=== PATIENT | female | born 1980 | race Caucasian/White ===

== ENCOUNTER 2017-05-28 17:05 | Emergency (ER) | payer OTHER ==
[~2017-05-28] VITALS: Ht 167.6 cm; Wt 65.8 kg
[~2017-05-28 17:05] MED LIST: ALPRAZOLAM0.25 MG PO; AMOXICILLIN875 MG PO; BENADRYL25 MG PO; BENTYL20 MG PO; CALCIUM + VITA1 EACH PO; CIPROFLOXACIN500 MG PO; CLONAZEPAM1 MG PO; DEPAKOTE500 MG PO; DICYCLOMINE HCL20 MG PO; DILAUDID2 MG PO; METOCLOPRAMIDE10 MG PO; NORCO 5-325 TA1 EACH PO; OMEPRAZOLE20 MG PO; ONDANSETRON ODT4 MG SL; PERCOCET 5-3251 EACH PO; PROMETHAZINE12.5 M1 PO; REGLAN10 MG PO; SERTRALINE HCL50 MG PO; SUDOGEST60 MG PO; TRAZODONE HCL50 MG PO; XANAX1 MG PO; ZOFRAN4 MG PO; ZOFRAN8 MG PO
[2017-05-28] MEDS ORDERED: PROMETHAZINE HC25 M1 PO (21:01)
[2017-08-16] MEDS ORDERED: MIGRANOW KIT50 MG (15:41)
== END 2017-05-28 21:21 | disposition home or self-care (01) ==
LOC: ED 17:05
DX: O99.89 Other specified diseases and conditions complicating pregnancy, childbirth and the puerperium (principal); R30.0 Dysuria; O20.0 Threatened abortion; O99.341 Other mental disorders complicating pregnancy, first trimester; F41.9 Anxiety disorder, unspecified; F31.9 Bipolar disorder, unspecified; O99.611 Diseases of the digestive system complicating pregnancy, first trimester; K31.84 Gastroparesis; K58.9 Irritable bowel syndrome, unspecified; Z91.040 Latex allergy status; Z88.8 Allergy status to other drugs, medicaments and biological substances; Z79.899 Other long term (current) drug therapy; Z3A.08 8 weeks gestation of pregnancy
CPT/HCPCS: 76815; 76817; 81001; 84702; 99284

== ENCOUNTER 2017-09-26 15:31 | Day surgery (SDC) | payer OTHER ==
[~2017-09-26] VITALS: Ht 172.7 cm; Wt 79.8 kg
[~2017-09-26 15:31] MED LIST changes: +MIGRANOW KIT50 MG; +PROMETHAZINE HC25 M1 PO
[2017-09-26] MEDS ORDERED: NORCO 5-325 TA1 EACH PO (15:52)
[2017-09-26] MEDS ORDERED: FLOMAX0.4 MG PO (15:53)
[2017-09-26] MEDS ORDERED: VISTARIL25 MG PO (15:54)
--- NOTE | 2017-09-26 16:48 | NUR ---
1550: [facility] NURSE IN TO CHECK HEART TONES. HEART TONES FOUND. RATE IS 135 - 160 BPM.
--- NOTE | 2017-09-26 18:28 | NUR ---
09/26/171827 Amber Lopez 182: PT OPENS EYES AND FOLLOWS DIRECTIONS TO OPEN MOUTH FOR ORAL AIRWAY TO BE REMOVED. FBC RN, SUNNY MENA @ MONITORING FETUS CONTINUOUSLY. PT DENIES PAIN AND IS LAYING QUIETLY IN BED. EXTREMITIES RELAXED.
--- NOTE | 2017-10-02 08:49 | OR ---
[facility] [address] [place], [place] [address] Signed DATE OF OPERATION: 09/26/2017 SURGEON: Thomas Rai MD PREOPERATIVE DIAGNOSES: 1. Severe bilateral flank pain, right greater than left. 2. Bilateral hydronephrosis, right greater than left. 3. Intrauterine , 25 weeks. POSTOPERATIVE DIAGNOSES: 1. Severe bilateral flank pain, right greater than left. 2. Bilateral hydronephrosis, right greater than left. 3. Intrauterine , 25 weeks. NAMES OF PROCEDURES: 1. Diagnostic cystoscopy with bilateral retrograde pyelograms. 2. Insertion of bilateral ureteral stents. ANESTHESIA: Spinal anesthetic. COMPLICATIONS: None. SPECIMENS: None. DRAINS: Bilateral 6 x 26 cm contour double-J ureteral stents, inserted into both ureters. INDICATIONS FOR PROCEDURE: Ms. Farr is a very pleasant 36-year-old female who is with her fifth child and is at 25 weeks gestation. Approximately one month ago, she began to notice right-sided flank pain that has progressively worsened overtime. She is now requiring constant oral narcotics in order to function. She was hospitalized for pain this past weekend by Dr. Nath. She has undergone a couple of ultrasounds and most recently her ultrasound revealed bilateral hydronephrosis with most of the severity of the hydronephrosis being on the right side. The ultrasound also revealed a possible 4 mm calcification due either to a stone or to a vascular calcification in the right kidney. After long discussion with the patient today, the patient has decided that she would like to proceed with Electronically Signed By: THOMAS RAI MD 10/02/17 0849 PATIENT NAME: LIANNA FARR OPERATIVE REPORT DATE OF : 76 PHYSICIAN: THOMAS RAI MD REPORT #: [id number] REPORT IS CONFIDENTIAL AND NOT TO BE RELEASED WITHOUT AUTHORIZATION [facility] [address] [place], [place] [address] Signed bilateral ureteral stent implantation in an effort to diminish her flank pain, which is likely due to external compression from the fetus. I also told the patient today that I could rule out the presence of any ureteral stones via retrograde pyelogram. She was notified of the risks and benefits of procedure, which did include labor, and has agreed to proceed. OPERATIVE FINDINGS: On cystoscopy, there was no evidence of any suspicious masses, lesions, or stones within the bladder. The patient's bladder has mildly dropped, and corresponds to grade 2 cystocele. This did affect the bladder orientation slightly during the procedure. I was able to appreciate ureteral coming from both ureters during the procedure. This was confirmed by ultrasound that was performed on September 22. Bilateral retrograde pyelograms were performed. The left side revealed normal pyelogram with evidence of only very mild hydronephrosis. The left ureter was completely patent. Right retrograde pyelogram revealed widening of the ureter down to the level of the iliac crest, which at that point then the ureter becomes more of normal size in diameter. I was unable to pass enough contrast to get up to the right kidney to perform a proper pyelogram. Bilateral 6 x 26 cm contour double-J ureteral stents were inserted into both ureters under direct visualization without difficulty. DESCRIPTION OF PROCEDURE: After informed consent was obtained, the patient was taken back to the operating room. She underwent placement of epidural anesthesia without difficulty. She was then placed in the dorsal lithotomy position and her genitalia prepped and draped in sterile surgical fashion. Using a 30 degree lens on a #22-Uzbek introducer, rigid cystoscope was inserted through the urethra into her bladder under direct visualization. Panendoscopic views of the bladder were obtained. Please see the findings. Attention was turned to the left ureteral orifice. A cone-tipped catheter was advanced to the left UO and a left retrograde pyelogram was performed. Please see above findings. The same procedure was performed on the right side. Please refer to the operative findings. Once both retrograde pyelograms performed, I inserted a Sensor wire into the left ureter and up into the left kidney. I confirmed placement of the wire via fluoroscopy. Over the wire, a 6 x 26 cm double-J ureteral stent was inserted into the left ureter under direct visualization without difficulty. I then cannulated the right ureter again with 0.035 Sensor wire up to the level of the renal pelvis. I confirmed placement of the wire via fluoroscopy. Over the wire, a 6 x 26 cm contour double-J ureteral stent was inserted into the patient's right kidney, and placement was confirmed on fluoroscopy. The patient's bladder was then drained, and the procedure was terminated. The patient Electronically Signed By: THOMAS RAI MD 10/02/17 0849 PATIENT NAME: LIANNA FARR OPERATIVE REPORT DATE OF : 76 PHYSICIAN: THOMAS RAI MD REPORT #: [id number] REPORT IS CONFIDENTIAL AND NOT TO BE RELEASED WITHOUT AUTHORIZATION [address] [address] Signed tolerated the procedure well without any complication. She will now be transferred to the postanesthesia care unit in stable condition. DISPOSITION: Ms. Farr will be discharged to home later this evening when she recovers from her spinal anesthesia. She will be sent home with Percocet 5/325, dispense #10 as needed for pain along with Macrobid 100 mg p.o. b.i.d. for a total of seven days. She will be scheduled to return to clinic to see me in approximately three weeks for urine check. She is scheduled to see Dr. Nath in two days for followup of her severe flank pain, which is now determined to be due to hydronephrosis of . MD YUMIKO Stinson/LAMBERTL /[id number] Electronically Signed By: THOMAS RAI MD 10/02/17 0849 PATIENT NAME: LIANNA FARR OPERATIVE REPORT DATE OF : 76 PHYSICIAN: THOMAS RAI MD REPORT #: [id number] REPORT IS CONFIDENTIAL AND NOT TO BE RELEASED WITHOUT AUTHORIZATION
== END 2017-09-26 21:45 | disposition home or self-care (01) ==
LOC: DS 15:31
PROVIDERS: Urology
PROC: BT14YZZ Fluoroscopy of Kidneys, Ureters and Bladder using Other Contrast (ICD-10-PCS; 2017-09-26)
PROC: 0T788DZ Dilation of Bilateral Ureters with Intraluminal Device, Via Natural or Artificial Opening Endoscopic (ICD-10-PCS; principal; 2017-09-26 17:30)
DX: O99.89 Other specified diseases and conditions complicating pregnancy, childbirth and the puerperium (principal); N13.30 Unspecified hydronephrosis; G43.909 Migraine, unspecified, not intractable, without status migrainosus; Z3A.25 25 weeks gestation of pregnancy; Z96.652 Presence of left artificial knee joint; Z98.890 Other specified postprocedural states
CPT/HCPCS: 00910; 74420; 74430; 80048; C2617; J0696; J2405; J2550; J2704; J2765; J3010; J7120; Q9967

== ENCOUNTER 2017-12-19 23:44 | Inpatient (IN) | payer OTHER ==
[~2017-12-19] VITALS: Ht 172.7 cm; Wt 82.0 kg
--- OUTSIDE RECORDS SUMMARY | ~2017-12-19 | XMS ---
Demographics + + + | Address | [address] | | | [place] [address] | + + + | Preferred Language | Unknown | + + + | Marital Status | Unknown | + + + | Advent Affiliation | Unknown | + + + | Race | Unknown | + + + | Ethnic Group | Unknown | + + + Author + + + | Author | [facility] | + + + | Organization | [facility] | + + + | Address | [address] | | | [place] [address] | + + + | Phone | | + + + Care Team Providers + + + + | Care Mapping Engineer Name | Role | Phone | + + + + Unavailable | Unavailable | + + + + PROBLEMS +---------+ + + +--------+ + + | Type | Condition | ICD9-CM | EQS74-LG | Onset | Condition | SNOMED | | | | Code | Code | Dates | Status | Code | +---------+ + + +--------+ + + | Problem | Encounter | Z34.90 | | | Active | [id number] | | | for | | | | | | | | supervisio | | | | | | | | n of | | | | | | | | normal | | | | | | | | | | | | | | +---------+ + + +--------+ + + | Problem | Pharyngiti | 462 | | | Active | [id number] | | | s NOS | | | | | | +---------+ + + +--------+ + + ALLERGIES No Information SOCIAL HISTORY Never Assessed PLAN OF CARE + +---------+ | Activity | Details | + +---------+ +---+ | | +---+ + + + | Pending Test | Ultrasound: Obstetric Limited | + + + VITAL SIGNS MEDICATIONS Unknown Medications RESULTS No Results PROCEDURES No Known procedures IMMUNIZATIONS No Known Immunizations MEDICAL (GENERAL) HISTORY + + +------+ | Type | Description | Date | + + +------+ | Medical History | Migraines | | + + +------+ | Surgical History | Left knee surgery | | + + +------+ | Surgical History | Abdominal wall evacuation | | | | of hematoma | | + + +------+ | Hospitalization History | E-Coli (bloody diarrhea) | 2000 | + + +------+"
--- OUTSIDE RECORDS SUMMARY | ~2017-12-19 | XMS ---
Demographics + + + | Address | [address] | | | [place] [address] | + + + | Preferred Language | Unknown | + + + | Marital Status | Unknown | + + + | Muslim Affiliation | Unknown | + + + | Race | Unknown | + + + | Ethnic Group | Unknown | + + + Author + + + | Author | [facility] | + + + | Organization | [facility] | + + + | Address | [address] | | | [place] [address] | + + + | Phone | Unavailable | + + + Care Team Providers + + + + | Care Vacuum Form Operator Name | Role | Phone | + + + + Unavailable | Unavailable | + + + + PROBLEMS +---------+ + + +--------+ + + | Type | Condition | ICD9-CM | OVV70-PM | Onset | Condition | SNOMED | | | | Code | Code | Dates | Status | Code | +---------+ + + +--------+ + + | Problem | Encounter | Z34.90 | | | Active | [id number] | | | for | | | | | | | | supervisio | | | | | | | | n of | | | | | | | | normal | | | | | | | | | | | | | | +---------+ + + +--------+ + + | Problem | Pharyngiti | 462 | | | Active | [id number] | | | s NOS | | | | | | +---------+ + + +--------+ + + ALLERGIES No Information SOCIAL HISTORY Never Assessed PLAN OF CARE VITAL SIGNS MEDICATIONS Unknown Medications RESULTS No [...] Hospitalization History | E-Coli (bloody diarrhea) | 2001 | + + +------+"
--- OUTSIDE RECORDS SUMMARY | ~2017-12-19 | XMS ---
Demographics + + + | Address | [address] | | | [place] [address] | + + + | Preferred Language | Unknown | + + + | Marital Status | Unknown | + + + | Adventism Affiliation | Unknown | + + + | Race | Unknown | + + + | Ethnic Group | Unknown | + + + Author + + + | Author | [facility] | + + + | Organization | [facility] | + + + | Address | [address] | | | [place] [address] | + + + | Phone | | + + + Care Team Providers + + + + | Care Rib Knitter Name | Role | Phone | + + + + Unavailable | Unavailable | + + + + PROBLEMS +---------+ + + +--------+ + + | Type | Condition | ICD9-CM | [id number] | Onset | Condition | SNOMED | | | | Code | Code | Dates | Status | Code | +---------+ + + +--------+ + + | Problem | Encounter | Z34.90 | | | Active | [id number] | | | for | | | | | | | | supervisio | | | | | | | | n of | | | | | | | | normal | | | | | | | | | | | | | | +---------+ + + +--------+ + + | Problem | Pharyngiti | 462 | | | Active | [id number] | | | s NOS | | | | | | +---------+ + + +--------+ + + ALLERGIES Unknown Allergies SOCIAL HISTORY No smoking Hx information available PLAN OF CARE VITAL SIGNS MEDICATIONS Unknown Medications RESULTS No Results PROCEDURES No Known procedures IMMUNIZATIONS No Known Immunizations"
--- OUTSIDE RECORDS SUMMARY | ~2017-12-19 | XMS ---
Demographics + + + | Address | [address] | | | [place] [address] | + + + | Preferred Language | Unknown | + + + | Marital Status | Unknown | + + + | Methodist Affiliation | Unknown | + + + | Race | Unknown | + + + | Ethnic Group | Unknown | + + + Author + + + | Author | [facility] | + + + | Organization | [facility] | + + + | Address | [address] | | | [place] [address] | + + + | Phone | | + + + Care Team Providers + + + + | Care Mechanical Cad Designer Name | Role | Phone | + + + + Unavailable | Unavailable | + + + + PROBLEMS +---------+ + + +--------+ + + | Type | Condition | ICD9-CM | [id number] | Onset | Condition | SNOMED | | | | Code | Code | Dates | Status | Code | +---------+ + + +--------+ + + | Problem | Encounter | Z34.90 | | | Active | [id number] | | | for | | | | | | | | supervisio | | | | | | | | n of | | | | | | | | normal | | | | | | | | | | | | | | +---------+ + + +--------+ + + | Problem | Pharyngiti | 462 | | | Active | [id number] | | | s NOS | | [...]
--- OUTSIDE RECORDS SUMMARY | ~2017-12-19 | XMS ---
Demographics + + + | Address | [address] | | | [place] [address] | + + + | Preferred Language | Unknown | + + + | Marital Status | Unknown | + + + | Druze Affiliation | Unknown | + + + | Race | Unknown | + + + | Ethnic Group | Unknown | + + + Author + + + | Author | [facility] | + + + | Organization | [facility] | + + + | Address | [address] | | | [place] [address] | + + + | Phone | | + + + Care Team Providers + + + + | Care Stunt Double Name | Role | Phone | + + + + Unavailable | Unavailable | + + + + PROBLEMS +---------+ + + +--------+ + + | Type | Condition | ICD9-CM | CQP85-LR | Onset | Condition | SNOMED | | | | Code | Code | Dates | Status | Code | +---------+ + + +--------+ + + | Problem | Encounter | Z34.90 | | | Active | [id number] | | | for | | | | | | | | supervisio | | | | | | | | n of | | | | | | | | normal | | | | | | | | | | | | | | +---------+ + + +--------+ + + | Problem | Pharyngiti | 462 | | | Active | [id number] | | | s NOS | | [...]
--- OUTSIDE RECORDS SUMMARY | ~2017-12-19 | XMS ---
Demographics + + + | Address | [address] | | | [place] [address] | + + + | Preferred Language | Unknown | + + + | Marital Status | Unknown | + + + | Pentecostalism Affiliation | Unknown | + + + | Race | Unknown | + + + | Ethnic Group | Unknown | + + + Author + + + | Author | [facility] | + + + | Organization | [facility] | + + + | Address | [address] | | | [place] [address] | + + + | Phone | | + + + Care Team Providers + + + + | Care Library Historian Name | Role | Phone | + + + + Unavailable | Unavailable | + + + + PROBLEMS +---------+ + + +--------+ + + | Type | Condition | ICD9-CM | [id number] | Onset | Condition | SNOMED | | | | Code | Code | Dates | Status | Code | +---------+ + + +--------+ + + | Problem | Encounter | Z34.90 | | | Active | [id number] | | | for | | | | | | | | supervisio | | | | | | | | n of | | | | | | | | normal | | | | | | | | | | | | | | +---------+ + + +--------+ + + | Problem | Pharyngiti | 462 | | | Active | [id number] | | | s NOS | | | | | | +---------+ + + +--------+ + + ALLERGIES Unknown Allergies SOCIAL HISTORY No smoking Hx information available PLAN OF CARE VITAL SIGNS MEDICATIONS + + + + + + + +--------+ | Medicati | Instruct | Dosage | Frequenc | Start | End Date | Duration | Status | | on | ions | | y | Date | | | | + + + + + + + +--------+ | Imitrex | Orally | 1 tablet | | 16 Aug, | | 15 | Active | | 50 mg | bid prn | as | | 2017 | | day(s) | | | | | needed | | | | | | + + + + + + + +--------+ | Flagyl | Orally | 1 tablet | 12h | 08 Sep, | 15 Sep, | 7 days | Active | | 500 mg | bid | | | 2016 | 2016 | | | + + + + + + + +--------+ | | | | | | | | Active | | Vitamin | | | | | | | | + + + + + + + +--------+ RESULTS No Results PROCEDURES No Known procedures IMMUNIZATIONS No Known Immunizations"
--- OUTSIDE RECORDS SUMMARY | ~2017-12-19 | XMS ---
Demographics + + + | Address | [address] | | | [place] [address] | + + + | Preferred Language | Unknown | + + + | Marital Status | Unknown | + + + | Yarsanism Affiliation | Unknown | + + + | Race | Unknown | + + + | Ethnic Group | Unknown | + + + Author + + + | Author | [facility] | + + + | Organization | [facility] | + + + | Address | [address] | | | [place] [address] | + + + | Phone | Unavailable | + + + Care Team Providers + + + + | Care Window Decorator Name | Role | Phone | + + + + Unavailable | Unavailable | + + + + PROBLEMS +---------+ + + +--------+ + + | Type | Condition | ICD9-CM | [id number] | Onset | Condition | SNOMED | | | | Code | Code | Dates | Status | Code | +---------+ + + +--------+ + + | Problem | Encounter | Z34.90 | | | Active | [id number] | | | for | | | | | | | | supervisio | | | | | | | | n of | | | | | | | | normal | | | | | | | | | | | | | | +---------+ + + +--------+ + + | Problem | Pharyngiti | 462 | | | Active | [id number] | | | s NOS | | [...]
[~2017-12-19 23:44] MED LIST changes: +FLOMAX0.4 MG PO; +VISTARIL25 MG PO
--- NOTE | 2017-12-20 11:35 | NUR ---
12/20/17 1135 Mayra Fontaine 1105 PT ARRIVED IN PACU WIDE AWAKE. FAMILY AT BEDSIDE. 1110 FAMILY LEFT ROOM. BABY AT BREAST WITH FBC RN ASSISTING.
--- NOTE | 2018-01-10 18:54 | OR ---
[facility] [address] [place], [place] [address] Signed DATE OF OPERATION: 12/20/2017 SURGEON: Declan Nath DO PREOPERATIVE DIAGNOSES: 1. Intrauterine at 37 weeks gestation. 2. Gestational hypertension. 3. History of shoulder dystocia. POSTOPERATIVE DIAGNOSES: 1. Intrauterine at 37 weeks gestation. 2. Gestational hypertension. 3. History of shoulder dystocia. PROCEDURE PERFORMED: Primary low transverse section. ANESTHESIA: Spinal. ESTIMATED BLOOD LOSS: 500 mL. COMPLICATIONS: None. FINDINGS: Delivery of viable male in cephalic, 20 inches in length, 6 pounds 2 ounces with Apgars of 9 and 9. Normal uterus, tubes, and ovaries. INDICATIONS: Ms. Farr is a pleasant 37-year-old, G7, P4, white female, who presents for scheduled primary low transverse section. Her has been complicated by gestational hypertension without proteinuria or severe range blood pressures, history of shoulder dystocia, anxiety, advanced maternal age, and previous ureteral stents earlier in . The patient requested primary low-transverse section due to history of shoulder dystocia and was recently diagnosed with gestational hypertension. Risks, benefits, and alternatives were discussed in detail with the patient. The patient understands and wished to proceed with the procedure. Electronically Signed By: DECLAN NATH DO 01/10/18 1854 PATIENT NAME: LIANNA FARR OPERATIVE REPORT DATE OF : 76 REPORT #: [id number] PHYSICIAN: DECLAN NATH DO PCP: DECLAN NATH DO REPORT IS CONFIDENTIAL AND NOT TO BE RELEASED WITHOUT AUTHORIZATION [facility] [address] [place], [place] [address] Signed TECHNIQUE: The patient was taken the operating room, where a time-out was performed to confirm correct patient and correct procedure. Spinal anesthesia was adequately established. The patient was then prepped in the supine position with a bump under the right hip. A latex-free Cummins catheter was inserted. ICPs were on and running and Ancef 2 g preoperatively were given per SCIP protocol. Once spinal anesthesia was tested and found to be adequate, a Pfannenstiel skin incision was made and carried down to and through the fascia in the midline. The fascia was nicked in the midline and fascial incision was extended bilaterally using curved Waters scissors. Miya was used to grasp the fascia and underlying rectus muscles were dissected off bluntly and sharply. The rectus muscles were divided in the midline bluntly and peritoneum was grasped with hemostats, elevated and incised sharply. The peritoneal incision was extended bilaterally using blunt and sharp dissection. The surgeon's hand was placed into the abdomen and the fundus was felt and found to be smooth with no intraabdominal adhesions noted. Lavell self retracting device was placed and the lower uterine segment was identified. Hysterotomy was performed using a surgical scalpel and clear fluid was noted. Hysterotomy was extended bilaterally using blunt dissection. The surgeon's hand was then placed into the uterine cavity, the head elevated into the abdomen and delivered with the assistance of fundal pressure. The shoulders delivered easily and the remainder of the delivered spontaneously. The was vigorous and cried and the oral nasopharynx were bulb suctioned. The cord was doubly clamped and cut and the was handed off to the waiting pediatric team for further care. Cord blood was obtained for routine analysis and the placenta was manually extracted. The uterus was cleared of any remaining products of conception and clot, and hysterotomy was then repaired using 0 Vicryl in a running locked stitch. A second vertical imbricating stitch of 0 Vicryl was then applied with good reapproximation. The pelvis was then irrigated and found to be hemostatic. The pericolic gutters were cleared of any remaining clots. The fallopian tubes and ovaries were examined and found to be normal bilaterally. The Lavell self retractor was removed and the lower segment again identified and found to be hemostatic. ACell sheet was applied to the lower uterine segment and the peritoneum was reapproximated using 2-0 Vicryl in a running, nonlocked stitch. The rectus muscles were loosely reapproximated in the midline using 0 Vicryl and 3 interrupted sutures and the rectus muscle was examined found to be hemostatic. ACell powder was applied to the rectus muscle and fascia was reapproximated using 0 Vicryl in a running nonlocked stitch. The subcutaneous layer was then reapproximated using 3-0 Vicryl in a running nonlocked stitch and skin was reapproximated using Quill suture with good hemostasis and cosmesis. The uterus was Crede'd for scant amount of blood loss and the patient was taken to the PACU in good and stable condition with her . Sponge, needle, and instrument count was correct x2 at the end of the procedure. Dr. Singh was present and participated in all portions of the procedure. Electronically Signed By: DECLAN NATH DO 01/10/18 1854 PATIENT NAME: LIANNA FARR OPERATIVE REPORT DATE OF : 76 REPORT #: [id number] PHYSICIAN: DECLAN NATH DO PCP: DECLAN NATH DO REPORT IS CONFIDENTIAL AND NOT TO BE RELEASED WITHOUT AUTHORIZATION [facility] [address] [place] [address] Signed Declan Nath DO JDW/IVAN /[id number] Electronically Signed By: DECLAN NATH DO 01/10/18 1854 PATIENT NAME: LIANNA FARR OPERATIVE REPORT DATE OF : 76 REPORT #: [id number] PHYSICIAN: DECLAN NATH DO PCP: DECLAN NATH DO REPORT IS CONFIDENTIAL AND NOT TO BE RELEASED WITHOUT AUTHORIZATION
== END 2017-12-23 16:40 | disposition home or self-care (01) | DRG 766 ==
LOC: FBC 12-20 07:47
PROVIDERS: ADMIT Obstetrics & Gynecology
PROC: 10D00Z1 Extraction of Products of Conception, Low, Open Approach (ICD-10-PCS; principal; 2017-12-20 11:00)
DX: O66.0 Obstructed labor due to shoulder dystocia (principal); O13.4 Gestational [pregnancy-induced] hypertension without significant proteinuria, complicating childbirth; Z3A.37 37 weeks gestation of pregnancy; Z37.0 Single live birth
CPT/HCPCS: 01961; 36415; 80053; 82570; 84156; 84550; 85025; 85027; C1763; J0690; J1170; J1644; J1885; J2274; J2370; J2405; J2590; J2765; J3010; J7120

== ENCOUNTER 2020-06-25 20:03 | Emergency (ER) | payer SELFPAY ==
[~2020-06-25] VITALS: Ht 172.7 cm; Wt 82.1 kg
--- OUTSIDE RECORDS SUMMARY | ~2020-06-25 | XMS | Encounter Summary ---
Demographics + + + | Address | [address] | | | [place] [address] | + + + | Home Phone | | + + + | Preferred Language | Unknown | + + + | Marital Status | | + + + | Uatsdin Affiliation | Unknown | + + + | Race | Unknown | + + + | Ethnic Group | Unknown | + + + Author + + + | Author | [facility] | | | and Jacobyana | + + + | Organization | [facility] | | | and Jacobyana | + + + | Address | Unknown | + + + | Phone | Unavailable | + + + Support + + + + + | Name | Relationship | Address | Phone | + + + + + | Bear Durbin | ECON | Unknown | | + + + + + | Sebastian Osei | ECON | [address] | | | | | [place] | | | | | [address] | | + + + + + | Jules Osei | ECON | [address] | | | | | [place] | | | | | [address] | | + + + + + Care Team Providers + +------+ + | Care Irrigation Flume Layer Name | Role | Phone | + +------+ + | Johnson Iniguez | PCP | | | MD | | | + +------+ + Reason for Visit + +--------+ + | Reason | Onset | Comments | | | Date | | + +--------+ + | Diarrhea (Adult) | 03/24/ | | | | 2015 | | + +--------+ + Encounter Details +--------+ + + + + | Date | Type | Department | Care Team | Description | +--------+ + + + + | 03/24/ | Telephone | [facility] | [facility], | Diarrhea (Adult) | | 2015 | | GASTROENTEROLOGY | [address] | | | | | [address] | [address] | | | | | [address] [place] | [place] | | | | | [address] | [phone] | | | | | [phone] | | | +--------+ + + + + Social History + +-------+ +--------+------+ | Tobacco Use | Types | Packs/Day | Years | Date | | | | | Used | | + +-------+ +--------+------+ | Never Smoker | | | | | + +-------+ +--------+------+ + +---+---+---+ | Smokeless Tobacco: | | | | | Never Used | | | | + +---+---+---+ + + +---------+ + | Alcohol Use | Drinks/Week | oz/Week | Comments | + + +---------+ + | Yes | 0 Standard drinks | 0.0 | Occasional social | | | or equivalent | | drinker | + + +---------+ + + + + | Sex Assigned at | Date Recorded | | | | + + + | Not on file | | + + + documented as of this encounter Miscellaneous Notes Telephone Encounter - Niecy Araujo CMA - 04/04/2016 11:53 AM PDTFaxed over order to [facility] in [place] Telephone Encounter - Niecy Araujo CMA - 04/04/2016 11:36 AM PDTCalled and spoke to the pa arianne and asked where she would like orders to go and she tells me that she would like to howard ve it go to [facility] in [place] 1 1:39 AM PDTTelephone Encounter - Amber Ruiz Circular Knitter - 03/28/2016 3:09 PM PDTLeft message for patient to return call. elephone Encounter - Amber Ruiz Medical As sistant - 03/24/2016 2:11 PM PDTLeft message that Mildred has sent in a Rx for Questran pow abel to take with Metamucil for diarrhea. Also ordered stool studies. Where would she like th e lab orders sent?Electronically signed by Asa Nails Assistant at 6 2:12 PM PDTTelephone Encounter - Yaritza Moody RN - 03/24/2016 1:51 PM PDTQuestran pa ckets ordered for diarrhea and abdominal cramping, as well as stool studies per Irlanda's reque stKayla Yadira will fax orders to patient preferred lab. elephone Encounter - Amber Ruiz, Circular Knitter - 03/24/2016 8:55 AM PDTSpoke to patient, she is having stomach cramping and diarrhea. She sa id her rectum is sore and irritated from so many BM's. Does she need different medication?El ectronically signed by Amber Ruiz Circular Knitter at 03/24/2016 9:00 AM PDTTeleph one Encounter - Belgica Bennett - 03/24/2016 8:22 AM PDTPatient called wishing to speak to Brkaty or her MA, Yadira, to update her on her on her medication. Patient stated that her curre nt medication is not working, and she needs to try something different. Please call her back at [phone]. documente d in this encounter Plan of Treatment + + +--------+ + + | Name | Type | Priori | Associated Diagnoses | Order Schedule | | | | ty | | | + + +--------+ + + | Lactoferrin, Fecal, | Microbiolog | Routin | Diarrhea | Expected: | | Qual | y | e | Abdominal cramping | 03/24/2016, Expires: | | | | | | 06/22/2016 | + + +--------+ + + | Culture, Stool | Microbiolog | Routin | Diarrhea | Expected: | | | y | e | Abdominal cramping | 03/24/2016, Expires: | | | | | | 03/24/2017 | + + +--------+ + + | Clostridium | Microbiolog | Routin | Diarrhea | Expected: | | difficile A and B | y | e | Abdominal cramping | 03/24/2016, Expires: | | EIA | | | | 03/25/2017 | + + +--------+ + + documented as of this encounter Visit Diagnoses + + | Diagnosis | + + | Diarrhea - Primary | + + | Abdominal cramping Abdominal pain, unspecified site | + + documented in this encounter"
--- OUTSIDE RECORDS SUMMARY | ~2020-06-25 | XMS | Encounter Summary ---
Demographics + + + | Address | [address] | | | [place] [address] | + + + | Home Phone | | + + + | Preferred Language | Unknown | + + + | Marital Status | | + + + | Oriental Orthodox Affiliation | Unknown | + + + | Race | Unknown | + + + | Ethnic Group | Unknown | + + + Author + + + | Author | [facility] | | | and Jacobyana | + + + | Organization | [facility] | | | and Jacobyana | [...] [place] | | | | | [address] | | + + + + + | Jules Osei | ECON | [address] | | | | | [place] | | | | | [address] | | + + + + + Care Team Providers + +------+ + | Care Refinery Operator Visbreaking Name | Role | Phone | + +------+ + | Johnson Iniguez | PCP | | | MD | | | + +------+ + Reason for Visit Auth/Cert +--------+--------+ + + + + | Status | Reason | Specialty | Diagnoses / | Referred By | Referred To | | | | | Procedures | Contact | Contact | +--------+--------+ + + + + | | | | Diagnoses | | | | | | | Nausea | | | | | | | Abdominal | | | | | | | bloating | | | | | | | Rectal | | | | | | | bleeding | | | | | | | Diarrhea | | | | | | | Chronic use | | | | | | | of | | | | | | | benzodiazepi | | | | | | | ne for | | | | | | | therapeutic | | | | | | | purpose | | | | | | | Nausea | | | | | | | [R11.0]Abdom | | | | | | | inal | | | | | | | bloating | | | | | | | [R14.0]Recta | | | | | | | l bleeding | | | | | | | [K62.5]Diarr | | | | | | | hea | | | | | | | [R19.7]Chron | | | | | | | ic use of | | | | | | | benzodiazepi | | | | | | | ne for | | | | | | | therapeutic | | | | | | | purpose | | | | | | | [Z79.899] | | | | | | | | | | | | | | Procedures | | | | | | | GA | | | | | | | ESOPHAGOGAST | | | | | | | RODUODENOSCO | | | | | | | PY TRANSORAL | | | | | | | DIAGNOSTIC | | | | | | | [place] | | | | | | | COLONOSCOPY | | | | | | | FLX DX | | | | | | | W/COLLJ SPEC | | | | | | | WHEN PFRMD | | | | | | | EGD / | | | | | | | COLONOSCOPY | | | +--------+--------+ + + + + Encounter Details +--------+ + + + + | Date | Type | Department | Care Team | Description | +--------+ + + + + | 12/08/ | [facility] | Crispin Tang MD | | | 2015 | Event | [facility] | [address] | | | | | [address] | [place] | | | | | [place] | [address] | | | | | [address] | | | | | | [phone] | | | +--------+ + + + + Anesthesia Record + + + + + | Procedure Name | Responsible | Anesthesia Start | Anesthesia Stop Time | | | Anesthesiologist | Time | | + + + + + | EGD / COLONOSCOPY | Crispin Tang MD | 12/08/15 0857 | 12/08/15 0950 | | (N/A ) | | | | + + + + + +----+---+ + + | Da | T | Event | Comment | | te | i | | | | | m | | | | | e | | | +----+---+ + + | 01 | 0 | An Checkout | Pre-use anesthesia machine/equipment checkout. | | /1 | 8 | | | | 9/ | 4 | | | | 20 | 0 | | | | 16 | | | | +----+---+ + + | | 0 | | | | | 8 | | | | | 4 | | | | | 3 | | | +----+---+ + + | | 0 | An Start | Reassessment prior to anesthesia induction/procedure. | | | 8 | | | | | 5 | | | | | 7 | | | +----+---+ + + | | 0 | An Start | | | | 8 | Data | | | | 5 | | | | | 8 | | | +----+---+ + + | | 0 | An | | | | 9 | Induction | | | | 0 | | | | | 0 | | | +----+---+ + + | | 0 | an stop | | | | 9 | data | | | | 4 | | | | | 4 | | | +----+---+ + + | | 0 | An Stop | Patient handed off to recovery nurse. | | | 5 | | | | | 0 | | | +----+---+ + + +------+ | Meds | +------+ + + + | Name | Total | + + + | propofol | 500 mg | + + + | propofol | 324.25 mg | + + + | lidocaine 2% | 20 mg | + + + | lactated ringers (LR) infusion | 750 mL | + + + + + | Name | + + | O2 Flow Rate (L/Min) | + + + + | No blood administrations on file. | + + +--------+ + + + | Type | Details | Placement | Removal | +--------+ + + + | Periph | 12/08/15; 0851; [id number]-[id number] | 12/08/15 0851 by | 12/08/15 1130 by | | hossein | catheter system; 20 gauge, 11/23 | Quyen Mondragon, | Gladys Hamm | | IV | in length; intradermal injection, | RN | JESSY Duncan | | | distraction; no longer | | | | | indicated, catheter/device | | | | | intact; 12/08/15; 1130 | | | +--------+ + + + documented in this encounter Social History + +-------+ +--------+------+ | Tobacco Use | Types | Packs/Day | Years | Date | | | | | Used | | + +-------+ +--------+------+ | Passive Smoke | | | | | | Exposure - Never | | | | | | Smoker | | | | | + +-------+ +--------+------+ + +---+---+---+ | Smokeless Tobacco: | | | | | Never Used | | | | + +---+---+---+ + + +---------+ + | Alcohol Use | Drinks/Week | oz/Week | Comments | + + +---------+ + | Yes | | | Occasional social | | | | | drinker | + + +---------+ + + + + | Sex Assigned at | Date Recorded | | | | + + + | Not on file | | + + + documented as of this encounter OR Notes Anesthesia Postprocedure Evaluation - Crispin Tang MD - 12/08/2015 9:52 AM PSTFormattin g of this note might be different from the original. ANESTHESIA POSTANESTHESIA EVALUATION Dali Osei 35 y.o. female 1980 [id number] Procedure(s) EGD / COLONOSCOPY (N/A ) Filed Vitals: 12/08/15 0856 12/08/15 0948 BP: 148/85 105/59 Pulse: 95 77 Temp: 36.4 C (97.5 F) 36.2 C (97.2 F) Resp: 18 SpO2: 97% 96% Cooperates? Yes Mental Status Performs simple tasks. Respiratory Satisfactory - Airway patent (self maintained). Cardiovascular Satisfactory Blood pressure and heart rate acceptable Temperature Satisfactory Pain Satisfactory N/V Control Satisfactory Hydration Satisfactory No signs of dehydration Complications None apparent Electronically signed by Crispin Tang MD 12/08/2015 9:[facility] Preprocedur e Evaluation - Crispin Tang MD - 12/08/2015 8:41 AM PST ANESTHESIA PREANESTHESIA EVALUATION Dali Osei 35 y.o. female 1980 [id number] Procedure(s): EGD / COLONOSCOPY (N/A ) Medical history, anesthesia, medications, allergy, NPO status verified histories reviewed. Review of Systems / Med History Pulmonary No acute pulmonary concerns. Psychology Negative except where noted below. Physical Exam Airway MP I, TM >3 FB, Mouth opening >2 FB. Neck: full ROM, extends >30 degrees. Jaw protrusi on normal. Dental Grossly normal except where noted below.; CV Rhythm regular. Rate Normal. (-) murmur. Pulm Clear to auscultation bilaterally. Neuro Grossly normal. Anesthesia Plan ASA 2 Type: TIVA. Induction: Intravenous. Potential problems: None anticipated. Monitors: Standard ASA monitors. Consent statement:Anesthetic plan, alternatives, risks and benefits discussed with patient. Risks discussed included (but were not limited to): sore throat, respiratory events, heart problems, dental injury, . Consenting person understands and agrees to proceed. documented in this enc ounter Miscellaneous Notes Addendum Note - Crispin Tang MD - 12/08/2015 9:53 AM PSTFormatting of this note might b e different from the original. Addendum created 12/08/15 0953 by Crispin Tang MD Modules edited: Notes Section Notes Section: File: [id number] documented in this en counter Plan of Treatment Not on filedocumented as of this encounter Visit Diagnoses Not on filedocumented in this encounter Administered Medications + +--------+ +-------+------+------+ | Medication Order | MAR | Action | Dose | Rate | Site | | | Action | Date | | | | + +--------+ +-------+------+------+ | lidocaine (PF) 2% injection | Given | 12/08/19 | 20 mg | | | | Intravenous, PRN, Starting Tue | | 16 9:00 | | | | | 12/08/15 at 0900, Anesthesia | | AM PST | | | | | Intra-op | | | | | | + +--------+ +-------+------+------+ +---+---+ | | | +---+---+ + +-------+ +-------+---+---+ | propofol (DIPRIVAN) injection | Given | 12/08/19 | 50 mg | | | | PRN, Starting 12/08/15 at | | 16 9:19 | | | | | 0900, Anesthesia Intra-op | | AM PST | | | | + +-------+ +-------+---+---+ +-------+ +-------+---+---+ | Given | 12/08/19 | 50 mg | | | | | 16 9:16 | | | | | | AM PST | | | | +-------+ +-------+---+---+ | Given | 12/08/19 | 50 mg | | | | | 16 9:14 | | | | | | AM PST | | | | +-------+ +-------+---+---+ +---+---+ | | | +---+---+ + + + + +-------+---+ | propofol (DIPRIVAN) injection | Rate/Dos | 12/08/19 | 140 | 84.6 | | | Intravenous, CONTINUOUS PRN, | e Change | 16 9:27 | mcg/kg/m | mL/hr | | | Starting 12/08/15 at 0920, | | AM PST | in | | | | Anesthesia Intra-op | | | | | | + + + + +-------+---+ +---------+ + +--------+---+ | New Bag | 12/08/19 | 200 | 120.8 | | | | 16 9:20 | mcg/kg/m | mL/hr | | | | AM PST | in | | | +---------+ + +--------+---+ +---+---+ | | | +---+---+ documented in this encounter"
--- OUTSIDE RECORDS SUMMARY | ~2020-06-25 | XMS | Encounter Summary ---
Demographics + + + | Address | [address] | | | [place] [address] | + + + | Home Phone | | + + + | Preferred Language | Unknown | + + + | Marital Status | | + + + | Advent Affiliation | Unknown | + + + | Race | Unknown | + + + | Ethnic Group | Unknown | + + + Author + + + | Author | [facility] | | | and Jacobyana | + + + | Organization | [facility] | | | and Jacobyana [...] [place] | | | | | [address] | | + + + + + | Jules Osei | ECON | [address] | | | | | [place] | | | | | [address] | | + + + + + Care Team Providers + +------+ + | Care Outer Diameter Technician Name | Role | Phone | + +------+ + PCP | Unavailable | + +------+ + Encounter Details +--------+ + + + + | Date | Type | Department | Care Team | Description | +--------+ + + + + | 09/10/ | Hospital | [facility] | Kody Vuong, | | | 2007 | Encounter | [facility] | [id number] | | | | | [facility] [address] | [facility] | | | | | [place], | [place] [address] | | | | | [place] [address] | [phone] | | | | | [phone] | | | +--------+ + + + + Social History + +-------+ +--------+------+ | Tobacco Use | Types | Packs/Day | Years | Date | | | | | Used | | + +-------+ +--------+------+ | Never Assessed | | | | | + +-------+ +--------+------+ + + + | Sex Assigned at | Date Recorded | | | | + + + | Not on file | | + + + documented as of this encounter Plan of Treatment Not on filedocumented as of this encounter Visit Diagnoses Not on filedocumented in this encounter"
--- OUTSIDE RECORDS SUMMARY | ~2020-06-25 | XMS | Encounter Summary ---
Demographics + + + | Address | [address] | | | [place] [address] | + + + | Home Phone | | + + + | Preferred Language | Unknown | + + + | Marital Status | | + + + | Baptism Affiliation | Unknown | + + + | Race | Unknown | + + + | Ethnic Group | Unknown | + + + Author + + + | Author | [facility] | | | and Jacobyana | + + + | Organization | [facility] | | | and Jacobyana [...] [place] | | | | | [address] | | + + + + + | Jules Osei | ECON | [address] | | | | | [place] | | | | | [address] | | + + + + + Care Team Providers + +------+ + | Care Diet Therapist Name | Role | Phone | + +------+ + | Johnson Iniguez | PCP | | | MD | | | + +------+ + Reason for Referral Evaluate & Treat (Routine) +--------+ + + + + + | Status | Reason | Specialty | Diagnoses / | Referred By | Referred To | | | | | Procedures | Contact | Contact | +--------+ + + + + + | Closed | Specialty | Gastroenterol | Diagnoses | | [place], | | | Services | ogy | Nausea | Nani, | MD Edd | | | Required | | Abdominal | [place], | [address] | | | | | bloating | [address] | [place], | | | | | Heartburn | [address] | [place] [address] | | | | | Rectal | [address] | Phone: | | | | | bleeding | [place], | [phone] | | | | | Diarrhea | [place] [address] | Fax: | | | | | Chronic use | Phone: | [phone] | | | | | of | [phone] | | | | | | benzodiazepi | Fax: | | | | | | ne for | [phone] | | | | | | therapeutic | | | | | | | purpose | | | | | | | Procedures | | | | | | | OK | | | | | | | ESOPHAGOGAST | | | | | | | RODUODENOSCO | | | | | | | PY TRANSORAL | | | | | | | DIAGNOSTIC | | | | | | | OK EDG | | | | | | | TRANSORAL | | | | | | | BIOPSY | | | | | | | SINGLE/MULTI | | | | | | | PLE OK | | | | | | | COLONOSCOPY | | | | | | | FLX DX | | | | | | | W/COLLJ SPEC | | | | | | | WHEN PFRMD | | | | | | | OK | | | | | | | COLONOSCOPY | | | | | | | W/BIOPSY | | | | | | | SINGLE/MULTI | | | | | | | PLE OK | | | | | | | COLSC FLX | | | | | | | W/RMVL OF | | | | | | | TUMOR POLYP | | | | | | | LESION SNARE | | | | | | | TQ OK | | | | | | | ANESTH,INTES | | | | | | | GENIA,SCOPE,L | | | | | | | OW OK | | | | | | | ANESTH,UGI | | | | | | | ENDOSCOPY | | | +--------+ + + + + + Diagnostic/Screening (Routine) +--------+--------+ + + + + | Status | Reason | Specialty | Diagnoses / | Referred By | Referred To | | | | | Procedures | Contact | Contact | +--------+--------+ + + + + | Closed | | Radiology | Diagnoses | | [facility] | | | | | Nausea | [place], | Medicine | | | | | Abdominal | Mildred, | [address] | | | | | bloating | [address] | [place], | | | | | Heartburn | [address] | [place] | | | | | Procedures | [address] | [address] | | | | | [place] Gastric | [place], | Phone: | | | | | Emptying | [place] [address] | [phone] | | | | | [facility] | Phone: | Fax: | | | | | EMPTYING | [phone] | [phone] | | | | | IMAGING | Fax: | | | | | | STUDY | [phone] | | +--------+--------+ + + + + Reason for Visit + + + | Reason | Comments | + + + | Diarrhea | | + + + Evaluate & Treat (Routine) +--------+--------+ + + + + | Status | Reason | Specialty | Diagnoses / | Referred By | Referred To | | | | | Procedures | Contact | Contact | +--------+--------+ + + + + | Closed | | Gastroenterol | Diagnoses | [place], | [place], | | | | ogy | Diarrhea, | Johnson | [place], | | | | | unspecified | MD Edd | [address] | | | | | Procedures | [address] | | | | | Office | L[place] Jain | [address] | | | | | Visit | [place], | [place], | | | | | | [place] | [place] [address] | | | | | | [address] | Phone: | | | | | | Phone: | [phone] | | | | | | [phone] | Fax: | | | | | | Fax: | [phone] | | | | | | [phone] | | +--------+--------+ + + + + Encounter Details +--------+---------+ + + + | Date | Type | Department | Care Team | Description | +--------+---------+ + + + | 11/26/ | Office | [facility] [place] | [place], | Nausea (Primary Dx); | | 2016 | Visit | GASTROENTEROLOGY | ROB Levy [address] | Abdominal bloating; | | | | [address] | [address] | Heartburn; Rectal | | | | [address] [place], [place] | [place], [place] | bleeding; Diarrhea; | | | | [address] | [address] | Chronic use of | | | | [phone] | | benzodiazepine for | | | | | | therapeutic purpose | +--------+---------+ + + + Social History + +-------+ [...] + + documented as of this encounter Last Filed Vital Signs + + + + + | Vital Sign | Reading | Time Taken | Comments | + + + + + | Blood Pressure | 110/70 | 11/26/2015 9:19 AM | | | | | PST | | + + + + + | Pulse | 85 | 11/26/2015 9:19 AM | | | | | PST | | + + + + + | Temperature | 37.2 C (99 F) | 11/26/2015 9:19 AM | | | | | PST | | + + + + + | Respiratory Rate | 16 | 11/26/2015 9:19 AM | | | | | PST | | + + + + + | Oxygen Saturation | 95% | 11/26/2015 9:19 AM | | | | | PST | | + + + + + | Inhaled Oxygen | - | - | | | Concentration | | | | + + + + + | Weight | 104.8 kg (231 lb) | 11/26/2015 9:19 AM | | | | | PST | | + + + + + | Height | - | - | | + + + + + | Body Mass Index | 35.12 | 12/04/2014 9:52 AM | | | | | PST | | + + + + + documented in this encounter Progress Yaritza Phan RN - 11/26/2015 11:48 AM PSTScheduled for egd/colon with prop on 12/08 at [address] Aiken. Patient has existing Rx for Zofran. Bowel prep ordered, booking sheet an d referral submitted. Mildred Cardoza, [employer] - 11/26/2015 9:41 AM PSTFormatting of this note might be differen t from the original. Dali Osei is a 35 y.o. female here for followup gastroparesis History of present illness: Patient notes that she was treated for gastroparesis 11/2014. Was feeling well and as she st arted diet. Continued to feel well until 03/5015. About 6 months ago, she stopped Reglan due to feeling "shaky". She also reports that she is undergoing testing for Lobito's disease. Notes negative testi ng for Celiac disease already done. Complains of diarrhea. Has up to 8 BM per day. Stools can be loose and/or watery. She has h istory of profound constipation. Stool studies negative for infection. Diarrhea has been an issues for the past 5 months. Has not worsened. Complains of some blood with wiping during bouts of diarrhea. Not sure if blood is due to i rritation or other cause. Nausea, abdominal bloating, and heartburn seem to be worsening. Allergies Allergen Reactions Aspirin Anaphylaxis Shock/ Unconsciousness. Latex Hives and Rash Past Medical History Diagnosis Date Anxiety disorder Gastroparesis Nausea Abdominal cramping Chronic diarrhea Hiatal hernia TMJ (temporomandibular joint disorder) Migraine Fibromyalgia Depression Past Surgical History Procedure Laterality Date Excision hematoma 1980 Left abdomen Growth plate surgery 1990 Left knee pins for growth plate Upper gastrointestinal endoscopy 09/2014 Gastric emptying study 09/26/14 Pronounced gastric atony with markedly delayed gastric emptying with a T1/2 of 250 minute s and only 50% emptying by 240 minutes. - [facility] Jesus Bingham MD Egd and colonoscopy 09/24/14 Concluding Diagnoses: 1. Normal colon and ileaum on gross inspection. 2. Hiatal hernia wi thout esophagitis Nm/hepatobiliary w/ cck 09/24/14 IMPRESSION: No evidence of cystic or common duct obstruction with prompt visualization of the gallbladder and small bowel. Gallbladder ejection fraction of 96% without replication o f the patient's symptoms. - [facility]. 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 Respiratory:Denies shortness of breath, cough or wheezing. Gastrointestinal:Negative except as stated above. Cardiovascular:Denies chest pain, palpitations, or swelling to legs Physical exam: General: well developed, well nourished, in no acute distress. Head: normocephalic and atraumatic Eyes: Sclera clear Mouth: MMM Lungs: Clear to auscultate bilaterally and throughout Heart: regular rate and rhythm Abdomen: Soft, non tender, non distended, bowel tones positive times 4 quadrants, negative Eleazar y's sign, negative rebound tenderness, no guarding, no hepatosplenomegaly palpated. Rectal: Will be done prior to procedure Msk: symmetrical with no deformity, with normal posture and gait, normal strength. Extremities: no clubbing, cyanosis, edema, or deformity noted Neurologic: no focal deficits, cranial nerves II-XII grossly intact Skin: intact without lesions or rashes. Psych: alert and cooperative; normal mood and affect; normal attention span and concentration. No visits with results within 1 Month(s) from this visit. Latest known visit with results is: Abstract on 12/03/2014 Component Date Value Ref Range Status Creatinine, External 09/26/2014 1.00 0.6 - 1.35 Final eGFR, External 09/26/2014 63 60 Final TSH, External 09/25/2014 2.49 0.27 - 4.2 Final WBC, External 09/25/2014 8.8 4.5 - 11 Final HGB, External 09/25/2014 12.5 12 - 16 Final HCT, External 09/25/2014 36.9 35 - 45 Final PLT, External 09/25/2014 226 140 - 440 Final Neutrophils %, External 09/25/2014 66.1 39 - 80 Final Lymphocytes %, External 09/25/2014 25.2 24 - 44 Final Monocytes %, External 09/25/2014 7.5 0 - 12 Final Eosinophils %, External 09/25/2014 0.9 0 - 6 Final RBC, External 09/25/2014 4.44 3.8 - 5.1 Final MCV, External 09/25/2014 83 81 - 99 Final RDW, External 09/25/2014 12.6 10.6 - 15 Final Sodium, External 09/26/2014 137 132 - 143 Final Potassium, External 09/26/2014 3.8 3.6 - 5.1 Final Chloride, External 09/26/2014 105 95 - 112 Final Carbon Dioxide, External 09/26/2014 27 19 - 31 Final Calcium, External 09/26/2014 8.8 8.4 - 10.2 Final Magnesium, External 09/26/2014 1.9 1.7 - 2.5 Final Lipase, External 09/25/2014 19 11 - 82 Final Glucose, External 09/26/2014 97 70 - 100 Final BUN, External 09/26/2014 10 6 - 23 Final Free Thyroxine Index, External 09/25/2014 1.16 0.71 - 1.7 Final Result 09/22/2014 Negative Final No Growth of normal enteric gram-negative bacilli after overnight incubation. Result 2 09/22/2014 Moderate Final Moderate growth normal enteric leobardo Result 3 09/22/2014 Negative Final No Salmonella, Shigella, Escherichia coli O1S7, Campylobacter, or Yersinia isolated. Not s pecifically tested for other enteric pathogens. C DIFFICILE ANTIGEN 09/22/2014 Negative Final C difficile Toxins A+B, EIA 09/22/2014 Negative Final [facility] 09/25/2014 28.0 27.0 - 33.0 pg Final MCHC 09/25/2014 34.0 30.0 - 36.0 % Final BASOPHILS % 09/25/2014 0.3 0.0 - 2.0 % Final ANION GAP 09/26/2014 9 7 - 21 mmol/L Final Bun/Creatinine 09/26/2014 10 6 - 28.6 Ratio Final Assessment 1. Nausea NM Gastric Emptying Ambulatory referral to Gastroenterology ([facility]) 2. Abdominal bloating NM Gastric Emptying Ambulatory referral to Gastroenterology ([facility]) 3. Heartburn NM Gastric Emptying Ambulatory referral to Gastroenterology ([facility]) 4. Rectal bleeding Ambulatory referral to Gastroenterology ([facility]) 5. Diarrhea Ambulatory referral to Gastroenterology ([facility]) 6. 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 Ambulatory referral to Gastroente rology ([facility]) Plan: Patient to have EGD and colonoscopy for further evaluation. The procedural techniques, risk s, indications, and alternatives were discussed. Among the risks, are perforation, bleeding , infection, allergic/adverse reactions to medications, and cardiovascular complications. E ach of these could result in hospitalization, additional procedures (including surgery), or other life threatening complications. Patient verbalized understanding. Risk factors to col o-rectal cancer discussed with patient including smoking, obesity, excessive red meat ingest ion, advancing age and first degree family relative with history of colo-rectal cancer discu ssed with patient. Patient to call with any questions or concerns prior to procedure. Recommend procedure with anesthesia due to chronic benzodiazepine use. Ordered gastric emptying study to check for continued motility cause for discomfort and nam sea. Patient given gastroparesis diet due to likely gastroparesis. Patient given a prescription for Bentyl to help with abdominal pain. Will follow up with results. Patient is to call with any question or concerns. Any fevers, chills, chest pain, SOB or other serious symptoms patient is to call the office or go to ER . Cc: Johnson Iniguez MD This note was dictated using voice recognition software. Please contact me if there are an y questions regarding its content. Electronically signed by ROB Powers at 05/2016 12:17 PM PSTdocumented in this encounter Plan of Treatment + +---------+--------+ + + | Name | Type | Priori | Associated Diagnoses | Order Schedule | | | | ty | | | + +---------+--------+ + + | NM Gastric Emptying | Imaging | Routin | Nausea Abdominal | Expected: | | | | e | bloating Heartburn | 11/26/2015, Expires: | | | | | | 03/25/2016 | + +---------+--------+ + + + + +--------+ + + | Name | Type | Priori | Associated Diagnoses | Order Schedule | | | | ty | | | + + +--------+ + + | Ambulatory referral | Outpatient | Routin | Nausea Abdominal | Expected: 12/08/2015 | | to Gastroenterology | Referral | e | bloating Heartburn | (Approximate), | | ([facility]) | | | Rectal bleeding | Expires: 2016 | | | | | Diarrhea Chronic | | | | | | Use Of | | | | | | Benzodiazepine For | | | | | | Therapeutic Purpose | | + + +--------+ + + documented as of this encounter Procedures + +--------+ + + + | Procedure Name | Priori | Date/Time | Associated Diagnosis | Comments | | | ty | | | | + +--------+ + + + | DIAGNOSTIC REPORT - | | 01/08/2016 | | | | EXTERNAL SCAN | | 12:00 AM | | | | | | PST | | | + +--------+ + + + documented in this encounter Visit Diagnoses + + | Diagnosis | + + | Nausea - Primary Nausea alone | + + | Abdominal bloating Flatulence, eructation, and gas pain | + + | Heartburn | + + | Rectal bleeding Hemorrhage of rectum and anus | + + | Diarrhea | + + | 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 | + + documented in this encounter
--- OUTSIDE RECORDS SUMMARY | ~2020-06-25 | XMS | Encounter Summary ---
Demographics + + + | Address | [address] | | | [place] [address] | + + + | Home Phone | | + + + | Preferred Language | Unknown | + + + | Marital Status | | + + + | Confucianist Affiliation | Unknown | + + + | Race | Unknown | + + + | Ethnic Group | Unknown | + + + Author + + + | Author | [facility] | | | and Jacobyana | + + + | Organization | [facility] | | | and Jacobyana | [...] [place] | | | | | [address] | | + + + + + | Jules Osei | ECON | [address] | | | | | [place] | | | | | [address] | | + + + + + Care Team Providers + +------+ + | Care Supervisor Nurse Name | Role | Phone | + +------+ + | Johnson Iniguez | PCP | | | MD | | | + +------+ + Reason for Visit + + + | Reason | Comments | + + + | Abdominal Pain | | + + + Evaluate & Treat (Routine) +--------+--------+ + + + + | Status | Reason | Specialty | Diagnoses / | Referred By | Referred To | | | | | Procedures | Contact | Contact | +--------+--------+ + + + + | Closed | | Gastroenterol | Diagnoses | [facility], | [facility] | | | | [facility] | | Dali | Gastroenterol | | | | | Gastroenteri | EMELY Atkins | [address] | | | | | tis | [address] | [address] | | | | | Procedures | [address] | [address] | | | | | Office Visit | [place] | [place] | | | | | | [place] | [address] | | | | | | [address] | Phone: | | | | | | Phone: | [phone] | | | | | | [phone] | Fax: | | | | | | Fax: | [phone] | | | | | | [phone] | | +--------+--------+ + + + + Encounter Details +--------+---------+ + + + | Date | Type | Department | Care Team | Description | +--------+---------+ + + + | 12/04/ | Office | [facility] | [facility], | Gastroparesis | | 2015 | Visit | GASTROENTEROLOGY | ROB [address] | (Primary Dx); | | | | [address] | [address] | Eosinophilic | | | | [address] [place], [place] | [place], [place] | esophagitis; Nausea; | | | | [address] | [id number] | Generalized | | | | [phone] | | abdominal pain | +--------+---------+ + + + Social History [...] + + + | Blood Pressure | 140/86 | 12/04/2014 9:52 AM | | | | | PST | | + + + + + | Pulse | 74 | 12/04/2014 9:52 AM | | | | | PST | | + + + + + | Temperature | 37.3 C (99.2 F) | 12/04/2014 9:52 AM | | | | | PST | | + + + + + | Respiratory Rate | 16 | 12/04/2014 9:52 AM | | | | | PST | | + + + + + | Oxygen Saturation | - | - | | + + + + + | Inhaled Oxygen | - | - | | | Concentration | | | | + + + + + | Weight | 92.5 kg (204 lb) | 12/04/2014 9:52 AM | | | | | PST | | + + + + + | Height | 172.7 cm (5' 8") | 12/04/2014 9:52 AM | | | | | PST | | + + + + + | Body Mass Index | 31.02 | 12/04/2014 9:52 AM | | | | | PST | | + + + + + documented in this encounter Patient Instructions Patient Instructions Mildred Cardoza ARNP - 12/04/2014 10:54 AM PSTIncrease omeprazole to 40 mg twice daily to treat eosinophilic esophagitis. Start gastroparesis diet. Patient Education Metoclopramide Hydrochloride Oral disintegrating tablet Metoclopramide Hydrochloride Oral solution Metoclopramide Hydrochloride Oral tablet Metoclopramide Hydrochloride Solution for injection Metoclopramide Hydrochloride Oral tablet What is this medicine? METOCLOPRAMIDE (met oh kloe PRA mide) is used to treat the symptoms of gastroesophageal ref lux disease (GERD) like heartburn. It is also used to treat people with slow emptying of the stomach and intestinal tract. This medicine may be used for other purposes; ask your health care provider or pharmacist i f you have questions. What should I tell my health care provider before I take this medicine? They need to know if you have any of these conditions: breast cancer depression diabetes heart failure high blood pressure kidney disease liver disease Parkinson's disease or a movement disorder pheochromocytoma seizures stomach obstruction, bleeding, or perforation an unusual or allergic reaction to metoclopramide, procainamide, sulfites, other medicin es, foods, dyes, or preservatives or trying to get breast-feeding How should I use this medicine? Take this medicine by mouth with a glass of water. Follow the directions on the prescriptio n label. Take this medicine on an empty stomach, about 30 minutes before eating. Take your d oses at regular intervals. Do not take your medicine more often than directed. Do not stop t aking except on the advice of your doctor or health infant caregiver. A special MedGuide will be given to you by the pharmacist with each prescription and refill . Be sure to read this information carefully each time. Talk to your manager union regarding the use of this medicine in children. Special care may be needed. Overdosage: If you think you have taken too much of this medicine contact a poison control center or emergency room at once. NOTE: This medicine is only for you. Do not share this medicine with others. What if I miss a dose? If you miss a dose, take it as soon as you can. If it is almost time for your next dose, ta ke only that dose. Do not take double or extra doses. What may interact with this medicine? acetaminophen cyclosporine digoxin medicines for blood pressure medicines for diabetes, including insulin medicines for hay fever and other allergies medicines for depression, especially an Monoamine Oxidase Inhibitor (MAOI) medicines for Parkinson's disease, like levodopa medicines for sleep or for pain tetracycline This list may not describe all possible interactions. Give your health care provider a list of all the medicines, herbs, non-prescription drugs, or dietary supplements you use. Also t ell them if you smoke, drink alcohol, or use illegal drugs. Some items may interact with you r medicine. What should I watch for while using this medicine? It may take a few weeks for your stomach condition to start to get better. However, do not take this medicine for longer than 12 weeks. The longer you take this medicine, and the more you take it, the greater your chances are of developing serious side effects. If you are an elderly patient, a female patient, or you have diabetes, you may be at an increased risk fo r side effects from this medicine. Contact your doctor immediately if you start having movem ents you cannot control such as lip smacking, rapid movements of the tongue, involuntary or uncontrollable movements of the eyes, head, arms and legs, or muscle twitches and spasms. Patients and their families should watch out for worsening depression or thoughts of suicid e. Also watch out for any sudden or severe changes in feelings such as feeling anxious, agit ated, panicky, irritable, hostile, aggressive, impulsive, severely restless, overly excited and hyperactive, or not being able to sleep. If this happens, especially at the beginning of treatment or after a change in dose, call your doctor. Do not treat yourself for high fever. Ask your doctor or health infant caregiver for advic e. You may get drowsy or dizzy. Do not drive, use machinery, or do anything that needs mental alertness until you know how this drug affects you. Do not stand or sit up quickly, especial ly if you are an older patient. This reduces the risk of dizzy or fainting spells. Alcohol c an make you more drowsy and dizzy. Avoid alcoholic drinks. What side effects may I notice from receiving this medicine? Side effects that you should report to your doctor or health infant caregiver as soon as p ossible: allergic reactions like skin rash, itching or hives, swelling of the face, lips, or tong ue abnormal production of milk in females breast enlargement in both males and females change in the way you walk difficulty moving, speaking or swallowing drooling, lip smacking, or rapid movements of the tongue excessive sweating fever involuntary or uncontrollable movements of the eyes, head, arms and legs irregular heartbeat or palpitations muscle twitches and spasms unusually weak or tired Side effects that usually do not require medical attention (report to your doctor or health infant caregiver if they continue or are bothersome): change in sex drive or performance depressed mood diarrhea difficulty sleeping headache menstrual changes restless or nervous This list may not describe all possible side effects. Call your doctor for medical advice a bout side effects. You may report side effects to FDA at 4-600-XES-4355. Where should I keep my medicine? Keep out of the reach of children. Store at room temperature between 20 and 25 degrees C (68 and 77 degrees F). Protect from l ight. Keep container tightly closed. Throw away any unused medicine after the expiration brandon e. NOTE:This sheet is a summary. It may not cover all possible information. If you have questi ons about this medicine, talk to your doctor, pharmacist, or health care provider. Copyright 2014 Gold Standard documented in this encounter Progress Notes Mildred Cardoza ARNP - 12/04/2014 10:13 AM PSTFormatting of this note might be differe nt from the original. Dali Osei is a 34 y.o. female referred by Johnson Iniguez for evaluati on and treatment of nausea, abdominal pain, alterations and bowels with abnormal gastric emp tying study and evidence of eosinophilic esophagitis. History of present illness: Patient notes that about 3-4 months ago she was having abdominal pain, nausea, vomiting and diarrhea. She would have symptoms for a few days, then would be better for a few more days. This went on for about 3 weeks. On her abdominal pain worsened to the point she went to he ER. She was admitted t o the hospital for over 10 days. She continued to have abdominal pain, nausea and vomiting. While on pain medication, she developed constipation in the hospital. She was initially disc harged after 3 days. Was home for an hour and she was readmitted for another 7 days. Since she was discharged from the hospital on 09/30/2014. She has continued to have nausea and abdominal pain. Abdominal pain on the right side. Pain is constant cramp or ache. Heat t o the area can help along with not eating. No certain foods worsen pain. She was taking Perc ocet every 6 hours for pain. She is now taking occasionally. Drinking Ensure for nutrition. Pain usually wakes her up from sleep. She is drinking Ensure 4 times daily and is trying to eat once every 2-3 days. After eating the intensity of cramping and ache worsens. Nausea with antiemetics have helped some. With increase in constipation, nausea seems to be worsening. She is no longer vomiting. She is now constipated. Prior to this episode, she has had alterations between constipation and diarrhea. Seems lik e a 2 weeks cycle that had been going on for about 2 years. Allergies Allergen Reactions Aspirin Anaphylaxis Shock/ Unconsciousness. Latex Hives and Rash Past Medical History Diagnosis Date Anxiety disorder Gastroparesis Nausea Abdominal cramping Chronic diarrhea Hiatal hernia TMJ (temporomandibular joint disorder) Migraine Fibromyalgia Depression Past Surgical History Procedure Date Excision hematoma 1980 Left abdomen Growth [...] Comment: Occasional social drinker Drug Use: No Sexually Active: Not on file Other Topics Concern Not on file Social History Narrative Caffeine: Drinks herbal tea daily Review of systems: Constitutional:Denies any fevers, chills, or unintentional weight loss. Eyes:Denies using glaucoma eye drops. Denies dry, burning, painful eyes Respiratory:Denies shortness of breath, cough or wheezing. Gastrointestinal:Complains of constipation, diarrhea, nausea and vomiting, heartburn, abdom inal pain, and dysphagia. Skin: Denies rashes. Neurological:Complains of memory difficulties and frequent bothersome headaches ENT:Complains of hayfever. Denies hearing loss, hearing aids, hearing ringing or buzzing in ears, constantly runny nose, nasal obstruction, dentures, or hoarseness. Cardiovascular:Denies chest pain, palpitations, or swelling to legs :Complains of frequent nocturnal urination. Denies painful urination, urine incontinence, bloody urine, or impotence Musculoskeletal:Complains of swollen joints, painful back, or painful joints. Psychiatric:Complains of depression and anxiety Endocrine:Denies enlarged thyroid Heme/lymph:Complains of anemia. Denies enlarged lymph glands. Physical exam: General: well developed, well nourished, in no acute distress. Head: normocephalic and atraumatic Eyes: Sclera clear Mouth: MMM Lungs: Clear to auscultate bilaterally and throughout Heart: regular rate and rhythm Abdomen: Soft, diffusely tender to palpation, non distended, bowel tones positive times 4 quadra nts, negative To's sign, negative rebound tenderness, no guarding, no hepatosplenomegaly palpated. Msk: symmetrical with no deformity, with normal posture and gait, normal strength. Extremities: no clubbing, cyanosis, edema, or deformity noted Neurologic: no focal deficits, cranial nerves II-XII grossly intact Skin: intact without lesions or rashes. Psych: alert and cooperative; normal mood and affect; normal attention span and concentration. Gastric Emptying Study 09/26/2014: Impression: Pronounced gastric atony with markedly delayed gastric emptying with a T1/2 of 250 minutes and only 50% emptying by [address] abdomen and pelvis with IV contrast 09/25/2014: 1. Bowel shows no obstruction , ileus or free air. No colitis or diverticulitis and normal appendix without appendicitis. There is fluid within a nondistended colon which is nonspecif ic and could represent a mild enteritis. 2. No inflammation, free fluid or abscess in the abdomen or pelvis. 3. Distended but otherwise normal gallbladder. No pancreatitis and no biliary duct dilation . 4. Normal kidneys. No hydronephrosis and no pyelonephritis. 5. Normal uterus and adnexa. EGD and Colonoscopy by Dr Beasley 09/24/2014: 1. Normal appearing colon and ileum. 2. Hiatal hernia without esophagitis. No sign of stomach or duodenal ulceration or inflamma tion. Pathology 09/24/2014: A. Cecum biopsy: - Unremarkable colonic mucosa B. Terminal ileum biopsy: - Unremarkable small bowel mucosa C. Hepatic flexure biopsy: - Unremarkable colonic mucosa. D. Transverse colon biopsy: - Minute subepithelial hemorrhage. E. Left colon biopsy: - Minute foci of subepithelial hemorrhage. F. Rectum biopsy: - Minute foci of subepithelial hemorrhage. G. Duodenum biopsy: - Unremarkable duodenal mucosa. H. Antrum biopsy: - Unremarkable gastric antral-type mucosa. I. Distal esophagus biopsy: - Squamous mucosa with increased intraepithelial eosinophils. Nuclear Medicine hepatobiliary scan 09/24/2014: No evidence of cystic or common duct obstruction with prompt visualization of the gallbladd er and small bowel. Gall bladder ejection fraction of 96% without replication of the patient 's symptoms. Abstract on 12/03/2014 Component Date Value Range Status Creatinine, External 09/26/2014 1.00 0.6 [...] difficile Toxins A+B, EIA 09/22/2014 Negative Final [facility] 09/25/2014 28.0 27.0 - 33.0 pg [facility] 09/25/2014 34.0 30.0 - 36.0 % Final BASOPHILS % 09/25/2014 0.3 0.0 - 2.0 % Final ANION GAP 09/26/2014 9 7 - 21 mmol/L Final Bun/Creatinine 09/26/2014 10 6 - 28.6 Ratio Final Assessment: 1. Gastroparesis 2. Eosinophilic esophagitis 3. Nausea 4. Generalized abdominal pain Plan: Discussed results of all tests in records provided. Advised patient that gastric emptying study shows profound gastroparesis, which is a delay in gastric emptying. Explained diagnosis and patient given 3 step diet for treatment. Advise d to follow step 1 for 2-3 days with multivitamin. Advance to step 2 Continue on step 2 for up to 1 month. When symptoms start to improve gradually move into step 3. She has previously been given Reglan to help with her gastroparesis. Discussed potential side effects includin g tardive dyskinesia. Patient verbalized understanding and will discontinue medication if in voluntary muscle movement begin, he will stop this medication immediately and call this offi ce. Discussed Eosinophilic Esophagitis with patient. Advised that this is likely an allergy to food she is eating. She will be on high dose omeprazole- 40 mg bid- for 12 weeks for treatme nt. Discussed the most common allergens: wheat, soy, cow's milk, tree nuts, fish and shellfi sh. She should avoid these for now. She has the option of allergy testing if she chooses. She is to follow up after 2 weeks to determine if any improvement in symptoms. Spent approximately 45 minutes with patient with over half in patient education. Patient is to call with any question or concerns. Any fevers, chills, chest pain, SOB or o ther serious symptoms patient is to call the office or go to ER Cc: Johnson Iniguez This note was dictated using voice recognition software. Please contact me if there are an y questions regarding its content. documented in t his encounter Miscellaneous Notes Miscellaneous - CHELSEY ROBISON - 12/04/2014 12:00 AM PST documented in this encounter Plan of Treatment Not on filedocumented as of this encounter Visit Diagnoses + + | Diagnosis | + + | Gastroparesis - Primary | + + | Eosinophilic esophagitis | + + | Nausea Nausea alone | + + | Generalized abdominal pain Abdominal pain, generalized | + + documented in this encounter
--- OUTSIDE RECORDS SUMMARY | ~2020-06-25 | XMS | Clinical Summary ---
Demographics + + + | Address | [address] | | | [place] [address] | + + + | Home Phone | | + + + | Preferred Language | Unknown | + + + | Marital Status | | + + + | Bahai Affiliation | Unknown | + + + | Race | Unknown | + + + | Ethnic Group | Unknown | + + + Author + + + | Author | [facility] | | | and Jacobyana | + + + | Organization | [facility] | | | and Jacobyana [...] [place] | | | | | [address] | | + + + + + | Jules Osei | ECON | [address] | | | | | [place] | | | | | [address] | | + + + + + Care Team Providers + +------+ + | Care Assistant Casino Shift Manager Name | Role | Phone | + +------+ + | Johnson Iniguez | PCP | | | MD | | | + +------+ + Allergies + + + + + + | Active Allergy | Reactions | Severity | Noted | Comments | | | | | Date | | + + + + + + | Aspirin | Anaphylaxis | High | 12/03/19 | Shock/ | | | | | 15 | Unconsciousness. | + + + + + + | Latex | Hives, Rash | Low | 12/03/19 | | | | | | 15 | | + + + + + + Medications + + + +---------+------+------+-------+ | Medication | Sig | Dispensed | Refills | Star | End | Statu | | | | | | t | Date | s | | | | | | Date | | | + + + +---------+------+------+-------+ | ondansetron | Take 8 mg by mouth | | 0 | | | Activ | | (ZOFRAN ODT) 8 mg | every 8 hours as | | | | | e | | disintegrating | needed. | | | | | | | tablet | | | | | | | + + + +---------+------+------+-------+ | ALPRAZolam (XANAX) | Take 0.5 mg by mouth | | 0 | | | Activ | | 0.5 mg tablet | 3 times daily as | | | | | e | | | needed. | | | | | | + + + +---------+------+------+-------+ | divalproex | Take 1,200 mg by | | 0 | | | Activ | | (DEPAKOTE) 500 mg EC | mouth Daily. | | | | | e | | tablet | | | | | | | + + + +---------+------+------+-------+ | traZODone | Take 50 mg by mouth | | 0 | | | Activ | | (DESYREL) 50 mg | nightly. | | | | | e | | tablet | | | | | | | + + + +---------+------+------+-------+ | sertraline | Take 50 mg by mouth | | 0 | | | Activ | | (ZOLOFT) 50 mg | Daily. | | | | | e | | tablet | | | | | | | + + + +---------+------+------+-------+ | fluticasone | 1 spray by Nasal | | 0 | | | Activ | | (FLONASE) 50 | route Daily. | | | | | e | | mcg/nasal spray | | | | | | | + + + +---------+------+------+-------+ Active Problems + + + | Problem | Noted Date | + + + | Nausea | 11/26/2015 | + + + | Abdominal bloating | 11/26/2015 | + + + | Rectal bleeding | 11/26/2015 | + + + | Diarrhea | 11/26/2015 | + + + | 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 | 11/26/2015 | + + + Family History + + +------+ + | Medical History | Relation | Name | Comments | + + +------+ + | No known problems | Father | | | + + +------+ + | Thyroid disease | Maternal | | Hypothyroid | | | Aunt | | | + + +------+ + | Heart disease | Maternal | | | | | Uncle | | | + + +------+ + | Lung cancer | Maternal | | | | | Uncle | | | + + +------+ + | Thyroid disease | Mother | | Hypothyroid | + + +------+ + | Thyroid disease | Paternal | | Hyperthyroid | | | Aunt | | | + + +------+ + | Breast cancer | Paternal | | | | | Aunt | | | + + +------+ + | Aortic insufficiency | Sister | | Aortic valve disease | + + +------+ + | Thyroid disease | Sister | | Hypothyroid | + + +------+ + | Crohn's disease | Sister | | | + + +------+ + + +------+--------+ + | Relation | Name | Status | Comments | + +------+--------+ + | Father | | Alive | | + +------+--------+ + | Maternal Aunt | | | | + +------+--------+ + | Maternal Uncle | | | | + +------+--------+ + | Maternal Uncle | | | | + +------+--------+ + | Mother | | Alive | | + +------+--------+ + | Paternal Aunt | | | | + +------+--------+ + | Paternal Aunt | | | | + +------+--------+ + | Sister | | | | + +------+--------+ + | Sister | | | | + +------+--------+ + | Sister | | | | + +------+--------+ + Social History + +-------+ +--------+------+ | [...] on file | | + + + Last Filed Vital Signs + + + + + | Vital Sign | Reading | Time Taken | Comments | + + + + + | Blood Pressure | 116/80 | 03/07/2016 10:37 AM | | | | | PDT | | + + + + + | Pulse | 86 | 03/07/2016 10:37 AM | | | | | PDT | | + + + + + | Temperature | 36.7 C (98.1 F) | 03/07/2016 10:37 AM | | | | | PDT | | + + + + + | Respiratory Rate | 16 | 03/07/2016 10:37 AM | | | | | PDT | | + + + + + | Oxygen Saturation | 97% | 03/07/2016 10:37 AM | | | | | PDT | | + + + + + | Inhaled Oxygen | - | - | | | Concentration | | | | + + + + + | Weight | 102.1 kg (225 lb) | 03/07/2016 10:37 AM | | | | | PDT | | + + + + + | Height | 172.7 cm (5' 8") | 12/08/2015 8:56 AM | | | | | PST | | + + + + + | Body Mass Index | 34.21 | 12/08/2015 8:56 AM | | | | | PST | | + + + + + Plan of Treatment + + +-------+ + | Health Maintenance | Due Date | Last | Comments | | | | Done | | + + +-------+ + | Vaccine: | | | | | Dtap/Tdap/Td (1 - | 8 | | | | Tdap) | | | | + + +-------+ + | Cervical Cancer | | | | | Screening (Pap) | 9 | | | + + +-------+ + | Vaccine: Influenza | | | | | (#1) | 0 | | | + + +-------+ + Results Not on filefrom Last 3 Months Insurance + +--------+ +--------+ +---------+--------+ | Payer | Benefi | Subscriber | Effect | Phone | Address | Type | | | t Plan | ID | magda | | | | | | / | | Dates | | | | | | Group | | | | | | + +--------+ +--------+ +---------+--------+ | [employer] | [employer] | [id number] | | [phone] | | Medica | | MEDICAID HMO | HEALTH | | [phone] | 1 | | id | | | MDCD | | esent | | | | | | HMO [place] | | | | | | + +--------+ +--------+ +---------+--------+ + +--------+ +--------+ + + | Guarantor Name | Accoun | Relation to | Date | Phone | Billing Address | | | t Type | Patient | of | | | | | | | | | | + +--------+ +--------+ + + | Dali Osei | Person | Self [birth year] | | | Meg | al/[place]han | | 1981 | [phone] | [place] [address] | | | matilde | | | 3 (Home) | | + +--------+ +--------+ + + Advance Directives + + + + + | Type | Date Recorded | Patient | Explanation | | | | 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
--- OUTSIDE RECORDS SUMMARY | ~2020-06-25 | XMS | Encounter Summary ---
Demographics + + + | Address | [address] | | | [place] [address] | + + + | Home Phone | | + + + | Preferred Language | Unknown | + + + | Marital Status | | + + + | Sikhism Affiliation | Unknown | + + + | Race | Unknown | + + + | Ethnic Group | Unknown | + + + Author + + + | Author | [facility] | | | and Jacobyana | + + + | Organization | [facility] | | | and Jacobyana [...] [place] | | | | | [address] | | + + + + + | Jules Osei | ECON | [address] | | | | | [place] | | | | | [address] | | + + + + + Care Team Providers + +------+ + | Care Ring Barker Operator Name | Role | Phone | + +------+ + | Johnson Iniguez | PCP | | | MD | | | + +------+ + Encounter Details +--------+ + + + + | Date | Type | Department | Care Team | Description | +--------+ + + + + | 12/25/ | Documentati | [facility] | Edd Aiken MD | | | 2016 | on | GASTROENTEROLOGY | [address] [facility] | | | | | [address] [facility] | [place], [place] | | | | | [address] [place], [place] | [address] | | | | | [address] | [phone] | | | | | [phone] | | | +--------+ + + + [...] + + documented as of this encounter Progress Notes Yaritza Moody RN - 12/25/2015 2:39 PM PSTResults letter routed to patient via [employer] nd to PCP. Hard copies mailed with hemorrhoid banding brochure. Will create referral for garcia gracia if patient interested in scheduling. Electronically signed by Yaritza Moody RN at 03/2016 2:45 PM PSTdocumented in this encounter Plan of Treatment Not on filedocumented as of this encounter Visit Diagnoses Not on filedocumented in this encounter"
--- OUTSIDE RECORDS SUMMARY | ~2020-06-25 | XMS | Encounter Summary ---
Demographics + + + | Address | [address] | | | [place] [address] | + + + | Home Phone | | + + + | Preferred Language | Unknown | + + + | Marital Status | | + + + | Shinto Affiliation | Unknown | + + + | Race | Unknown | + + + | Ethnic Group | Unknown | + + + Author + + + | Author | [facility] | | | and Jacobyana | + + + | Organization | [facility] | | | and [...] [place] | | | | | [address] | | + + + + + | Jules Osei | ECON | [address] | | | | | [place] | | | | | [address] | | + + + + + Care Team Providers + +------+ + | Care Network Pricing Consultant Name | Role | Phone | + +------+ + PCP | Unavailable | + +------+ + Encounter Details +--------+ + + + + | Date | Type | Department | Care Team | Description | +--------+ + + + + | 09/17/ | [facility] | [facility] | Dontae Marquis | | | 2003 | Encounter | MED CTR GENERIC OP | MD Guy [address] | | | | | CONV DEPT [address] [place], [place] | | | | | [place], | [address] | | | | | [place] [address] | [phone] | | | | | [phone] | | | +--------+ + + + [...]
--- OUTSIDE RECORDS SUMMARY | ~2020-06-25 | XMS | Encounter Summary ---
Demographics + + + | Address | [address] | | | [place] [address] | + + + | Home Phone | | + + + | Preferred Language | Unknown | + + + | Marital Status | | + + + | Orthodoxy Affiliation | Unknown | + + + | Race | Unknown | + + + | Ethnic Group | Unknown | + + + Author + + + | Author | [facility] | | | and Jacobyana | + + + | Organization | [facility] | | | and [...] [place] | | | | | [address] | | + + + + + | Jules Osei | ECON | [address] | | | | | [place] | | | | | [address] | | + + + + + Care Team Providers + +------+ + | Care Educational Interpreter Name | Role | Phone | + +------+ + | Johnson Iniguez | PCP | | | MD | | | + +------+ + Reason for Visit + + + | Reason | Comments | + + + | Follow-up | | + + + Encounter Details +--------+---------+ + + + | Date | Type | Department | Care Team | Description | +--------+---------+ + + + | 03/07/ | Office | [facility] | [facility], | Irritable bowel | | 2016 | Visit | GASTROENTEROLOGY | ROB [address] | syndrome with | | | | [address] | [address] | diarrhea (Primary | | | | [address] [place], [place] | [place], [place] | Dx); Nausea | | | | [address] | [address] | | | | | [phone] | | | +--------+---------+ + + + Social History [...] Instructions Patient Instructions Mildred Cardoza ARNP - 03/07/2016 11:10 AM PDTIrritable Bowel Syn drome: Self Care and Non-Pharmacologic Treatments ? Regular Cardiovascular Exercise (30 minutes, 3-5 times per week) ? FODMAP dietary changes ? Stress Relief: yoga, massage, acupuncture, meditation, expressive writing, hypnosis ? Probiotics ? Eating meals at regular intervals (not skipping meals or excessive snacking between meals ) ? Peppermint oil enteric-coated capsules (non-enteric coated capsules can cause heartburn) ? Other herbal medicines that have historically been used for IBS include chamomile, rosema ry, valerian, janes, and lemon balm. ? Counseling ? High fiber diet: bananas, oranges, strawberries, blueberries, tomatoes, carrots, corn, br own rice, wild rice, gluten free breads, pastas and oatmeal. Expressive writing: Am J Gastroenterol 2010; 105:2440 2448; doi:10.1038/ajg.2010.246;publ ished online 04 May 2010 Accupuncture: Am J Gastroenterol 2010;105:699; doi:10.1038/ajg.2009.647: Exercise: Am J Gastroenterol advance online publication 23 November 2010; doi: 10.1038/ajg.20 10.480 Peppermint: [place] Journal of Gastroenterology (1998) 93, 2304 2305; doi:10.1111/j.1572 -0241.1998.58197.x Probiotics: Am J Gastroenterol 2009; 104:1033 1049; doi:10.1038/ajg.2009.25; published on line 27 January 2009 FODMAP Elimination Diet: Malabsorption of fructose and short-chain carbohydrates ? Useful for Irritable Bowel Syndrome, Functional Diarrhea, Functional Dyspepsia, Functiona l Bloating, Lactose and Gluten Sensitivities. ? Review checklist for common foods in your diet. Limit/Eliminate these foods in your diet. ? Try for 8 weeks. Then attempt to reintroduce foods slowly (one new food every 2 weeks). W atc for signs of recurrent symptoms when reintroducing foods. FODMAP checklist- common problematic foods ? Fruit: apple, pear, guava, honeydew, saumya, pear, papaya, quince, star fruit, water melon. ? Stone fruits: apricots, peaches, cherries, plums, nectarines. ? Fruits with high sugar content: grapes, persimmon, lychee. ? Dried fruit. ? Fruit juice, canned packing juice. ? Dried Fruit Bars. ? Fruit pastas and sauces: tomato paste, chutney, relish, plum sauce, sweet and sour sauce, barbeque sauce. ? Fruit juice concentrate. ? Fructose as an added sweetener. ? High fructose corn syrup or corn syrup solids including: fruit drinks, carbonated drinks, pancake syrup, catsup, jams, jellies, pickle, relish, and/or liquid cough remedies, and liq uid pain relievers. ? Honey. ? Coconut milk. ? Fortified ida: kathe, port, etc. ? Vegetables: onion hansel, asparagus, artichokes, cabbage, Brussel sprouts, beans. ? Wheat or white bread. ? Wheat pasta, noodles. ? Wheat based cereals. ? Wheat based cakes. ? Chickory-based coffee- substitute beverages. ? Artificial sweeteners: sorbitol, mannitol, isomall, xylitol. ? If Lactose Malabsorption: milk, ice cream, yogurt. documented in this encounter Progress Notes Mildred Cardoza ARNP - 03/07/2016 11:01 AM PDTFormatting of this note might be differe nt from the original. Dali Osei is a 35 y.o. female here for followup EGD, colonoscopy, and gastric emptying study. History of present illness: Patient complains of continued nausea. Nausea can come at any time. She had been diagnosed with gastroparesis in 2013. At that time her gastric emptying study showed a markedly gurwinder yed gastric emptying. She is also having worsening nausea after eating. She is now feeling that nausea comes with or without eating. Complains of heartburn, worse at night. Also comes after eating. Diarrhea has persisted. Diarrhea is worse with eating. Having 8-12 BM per day. Notes some occasional nocturnal bowel movements. She has not lost weight due to the number of bowel mo vements. She reports that she was found to have elevated cortisol levels. This is being followed by Dr. Iniguez. Allergies Allergen Reactions Aspirin Anaphylaxis Shock/ Unconsciousness. [...] symptoms. - [facility] MD Colonoscopy Egd and colonoscopy N/A 12/08/2015 Procedure: EGD / COLONOSCOPY; Surgeon: Edd Aiken MD; Location: 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 Respiratory:Denies shortness of breath, cough or wheezing. Gastrointestinal:Negative except as stated above. Cardiovascular:Denies chest pain, palpitations, or swelling to legs Physical exam: General: Alert and oriented, NAD Eyes: Sclera clear Mouth: Mucous membranes moist Extremities: No clubbing or edema Skin: Warm, dry, intact. No rashes noted Neuro: Cranial nerves 2-12 grossly intact. Psych: Appropriate mood and affect. No visits with results within 1 Month(s) [...] difficile Toxins A+B, EIA 09/22/2014 Negative Final MCH 09/25/2014 28.0 27.0 - 33.0 pg Final MCHC 09/25/2014 34.0 30.0 - 36.0 % Final BASOPHILS % 09/25/2014 0.3 0.0 - 2.0 % Final ANION GAP 09/26/2014 9 7 - 21 mmol/L Final Bun/Creatinine 09/26/2014 10 6 - 28.6 Ratio Final Gastric emptying study : Findings: The stomach begins to empty immediately and continue steadily emptying through the 4 hour e xamination. Half emptying time is 90 minutes, which is mildly delayed. At 3 hours, the stomach is 83% emptied. At 4 hours the stomach is completely empty. EGD 12/08/2015: Impression: - Normal esophagus. Biopsied. - Erythematous mucosa in the stomach. Biopsied. - Normal duodenal bulb, 2nd part of the duodenum and 3rd part of the duodenum. Biopsied. Colonoscopy 12/08/2015: Impression: - The entire examined colon is normal. Biopsied. - Non-bleeding internal hemorrhoids. - The examined portion of the ileum was normal. Pathology 12/08/2015: FINAL PATHOLOGIC DIAGNOSIS: A. Duodenum, biopsies: - Fragments of benign duodenal mucosa, negative for celiac disease. B. Stomach, biopsies: - Fragments of benign gastric mucosa with mild chronic inflammation. - No Helicobacter pylori organisms identified. - No intestinal metaplasia identified. - No dysplasia identified. C. Esophagus, distal, biopsies: - Benign esophageal squamous mucosa. - Negative for reflux esophagitis. - Negative for eosinophilic esophagitis. - Negative for intestinal metaplasia (Parekh's esophagus). - Negative for dysplasia. D. Esophagus, mid, biopsies: - Benign esophageal squamous mucosa. - Negative for reflux esophagitis. - Negative for eosinophilic esophagitis. - Negative for intestinal metaplasia (Parekh's esophagus). - Negative for dysplasia. E. Colon, right, biopsies: - Fragments of benign colonic mucosa with lymphoid aggregates. - Negative for acute or chronic colitis. - Negative for microscopic colitis. - Negative for dysplasia. F. Colon, left, biopsies: - Fragments of benign colonic mucosa with lymphoid aggregates. - Negative for acute or chronic colitis. - Negative for microscopic colitis. - Negative for dysplasia. Assessment 1. Irritable bowel syndrome with diarrhea 2. Nausea Suspect this is also secondary to irritable bowel syndrome. Plan: Patient given prescription for Viberzi to help with irritable bowel syndrome with a diarrhe a predominant component. Colonoscopy showed no evidence of any pathologic organic cause for her diarrhea. Due to nausea having different timing as her previous diagnosis of gastroparesis, suspect n ausea is also secondary to a functional cause. Patient does note that she is going through divorce. Had been seeing a therapist. She feels as though her therapist was making her anx iety worse. Patient given information related to irritable bowel syndrome. Patient given copy of the FODMAP diet to determine if malabsorption as a cause for symptoms . Patient is to call with any question or concerns. Any fevers, chills, chest pain, SOB or o ther serious symptoms patient is to call the office or go to ER Cc: Johnson Iniguez MD This note was dictated using voice recognition software. Please contact me if there are an y questions regarding its content. documented in t his encounter Plan of Treatment Not on filedocumented as of this encounter Procedures + +--------+ + + + | Procedure Name | Priori | Date/Time | Associated Diagnosis | Comments | | | ty | | | | + +--------+ + + + | LABS - EXTERNAL SCAN | | 09/10/2015 | | Results for this | | | | 12:00 AM | | procedure are in the | | | | PDT | | results section. | + +--------+ + + + documented in this encounter Results LABS - EXTERNAL SCAN (09/10/2015 12:00 AM PDT) + + + | Narrative | Performed At | + + + | Ordered by an | | | unspecified provider. | | + + + documented in this encounter Visit Diagnoses + + | Diagnosis | + + | Irritable bowel syndrome with diarrhea - Primary Irritable bowel syndrome | + + | Nausea Nausea alone | + + documented in this encounter"
--- OUTSIDE RECORDS SUMMARY | ~2020-06-25 | XMS | Encounter Summary ---
Demographics + + + | Address | [address] | | | [place] [address] | + + + | Home Phone | | + + + | Preferred Language | Unknown | + + + | Marital Status | | + + + | Worship Affiliation | Unknown | + + + | Race | Unknown | + + + | Ethnic Group | Unknown | + + + Author + + + | Author | [facility] | | | and Jacobyana | + + + | Organization | [facility] | | | and Jacobyana [...] [place] | | | | | [address] | | + + + + + | Jules Osei | ECON | [address] | | | | | [place] | | | | | [address] | | + + + + + Care Team Providers + +------+ + | Care Medical Technician Assistant Name | Role | Phone | + +------+ + PCP | Unavailable | + +------+ + Encounter Details +--------+ + + + + | Date | Type | Department | Care Team | Description | +--------+ + + + + | 02/01/ | Hospital | [facility] | Dontae Marquis | | | 2005 - | Encounter | MED CTR [facility]ENS | [facility] [address] [facility] | | | | | [facility] [address] [place], [place] | | | 02/03/ | | [place], | [address] | | | 2004 | | [place] [address] | [phone] | | | | | [phone] | | | +--------+ + + + [...]
--- OUTSIDE RECORDS SUMMARY | ~2020-06-25 | XMS | Encounter Summary ---
Demographics + + + | Address | [address] | | | [place] [address] | + + + | Home Phone | | + + + | Preferred Language | Unknown | + + + | Marital Status | | + + + | Gnosticist Affiliation | Unknown | + + + | Race | Unknown | + + + | Ethnic Group | Unknown | + + + Author + + + | Author | [facility] | | | and Jacobyana | + + + | Organization | [facility] | | | and Jacobyana | [...] [place] | | | | | [address] | | + + + + + | Jules Osei | ECON | [address] | | | | | [place] | | | | | [address] | | + + + + + Care Team Providers + +------+ + | Care Central Supply Technician Name | Role | Phone | + +------+ + PCP | Unavailable | + +------+ + Encounter Details +--------+ + + + + | Date | Type | Department | Care Team | Description | +--------+ + + + + | 01/25/ | Hospital | [facility] | | | | 2004 | Encounter | MED CTR EMERGENCY | | | | | | CENTER [address] | | | | | | [place] | | | | | | [address] | | | | | | [phone] | | | +--------+ + + + [...]
--- OUTSIDE RECORDS SUMMARY | ~2020-06-25 | XMS | Encounter Summary ---
Demographics + + + | Address | [address] | | | [place] [address] | + + + | Home Phone | | + + + | Preferred Language | Unknown | + + + | Marital Status | | + + + | Adventist Affiliation | Unknown | + + + | Race | Unknown | + + + | Ethnic Group | Unknown | + + + Author + + + | Author | [facility] | | | and Jacobyana | + + + | Organization | [facility] | | | and Jacobyana [...] [place] | | | | | [address] | | + + + + + | Jules Osei | ECON | [address] | | | | | [place] | | | | | [address] | | + + + + + Care Team Providers + +------+ + | Care Salicylic Acid Blender Name | Role | Phone | + +------+ + | Johnson Iniguez | PCP | | | MD | | | + +------+ + Reason for Visit +--------+--------+ + | Reason | Onset | Comments | | | Date | | +--------+--------+ + | Other | 12/10/ | | | | 2014 | | +--------+--------+ + Encounter Details +--------+ + + + + | Date | Type | Department | Care Team | Description | +--------+ + + + + | 12/10/ | Telephone | [facility] | [facility] | | 2014 | | GASTROENTEROLOGY | ROB [address] | | | | | [address] | [address] | | | | | [address] [place] | [place] | | | | | [address] | [address] | | | | | [phone] | | | +--------+ + + + [...] this encounter Miscellaneous Notes Telephone Encounter - Shirlene Bird - 12/10/2014 12:10 PM PSTNeed updated insurance info. N eed all the ID numbers, we currently do not have the correct numbers. Left message for hardik ro to call back with this info. documented in this encounter Plan of Treatment Not on filedocumented as of this encounter Visit Diagnoses Not on filedocumented in this encounter"
--- OUTSIDE RECORDS SUMMARY | ~2020-06-25 | XMS | Encounter Summary ---
Demographics + + + | Address | [address] | | | [place] [address] | + + + | Home Phone | | + + + | Preferred Language | Unknown | + + + | Marital Status | | + + + | Confucianism Affiliation | Unknown | + + + | Race | Unknown | + + + | Ethnic Group | Unknown | + + + Author + + + | Author | [facility] | | | and Jacobyana | + + + | Organization | [facility] | [...] [place] | | | | | [address] | | + + + + + | Jules Osei | ECON | [address] | | | | | [place] | | | | | [address] | | + + + + + Care Team Providers + +------+ + | Care Full Decator Operator Name | Role | Phone | + +------+ + PCP | Unavailable | + +------+ + Encounter Details +--------+ + + + + | Date | Type | Department | Care Team | Description | +--------+ + + + + | 12/03/ | Abstract | [facility] [place] | [facility], | | | 2014 | | GASTROENTEROLOGY | ROB [address] | | | | | [address] | [address] | | | | | [address] [place] | [place] | | | | | [address] | [address] | | | | | [phone] | | | +--------+ + + + [...] | | + +-------+ +--------+------+ + + +---------+ + | Alcohol Use [...] | + +--------+ + + + | EXTERNAL LAB: BUN | Routin | 09/26/2014 | | Results for this | | | e | | | procedure are in the | | | | | | results section. | + +--------+ + + + | EXTERNAL LAB: | Routin | 09/26/2014 | | Results for this | | GLUCOSE | e | | | procedure are in the | | | | | | results section. | + +--------+ + + + | EXTERNAL LAB: | Routin | 09/26/2014 | | Results for this | | MAGNESIUM | e | | | procedure are in the | | | | | | results section. | + +--------+ + + + | EXTERNAL LAB: | Routin | 09/26/2014 | | Results for this | | CALCIUM | e | | | procedure are in the | | | | | | results section. | + +--------+ + + + | EXTERNAL LAB: CARBON | Routin | 09/26/2014 | | Results for this | | DIOXIDE | e | | | procedure are in the | | | | | | results section. | + +--------+ + + + | EXTERNAL LAB: | Routin | 09/26/2014 | | Results for this | | CHLORIDE | e | | | procedure are in the | | | | | | results section. | + +--------+ + + + | EXTERNAL LAB: | Routin | 09/26/2014 | | Results for this | | POTASSIUM | e | | | procedure are in the | | | | | | results section. | + +--------+ + + + | EXTERNAL LAB: SODIUM | Routin | 09/26/2014 | | Results for this | | | e | | | procedure are in the | | | | | | results section. | + +--------+ + + + | EXTERNAL LAB: EGFR | Routin | 09/26/2014 | | Results for this | | | e | | | procedure are in the | | | | | | results section. | + +--------+ + + + | EXTERNAL LAB: | Routin | 09/26/2014 | | Results for this | | CREATININE | e | | | procedure are in the | | | | | | results section. | + +--------+ + + + | BASIC METABOLIC | Routin | 09/26/2014 | | Results for this | | PANEL | e | | | procedure are in the | | | | | | results section. | + +--------+ + + + | EXTERNAL LAB: FREE | Routin | 09/25/2014 | | Results for this | | THYROXINE INDEX | e | | | procedure are in the | | | | | | results section. | + +--------+ + + + | EXTERNAL LAB: LIPASE | Routin | 09/25/2014 | | Results for this | | | e | | | procedure are in the | | | | | | results section. | + +--------+ + + + | EXTERNAL LAB: CBC | Routin | 09/25/2014 | | Results for this | | | e | | | procedure are in the | | | | | | results section. | + +--------+ + + + | EXTERNAL LAB: TSH | Routin | 09/25/2014 | | Results for this | | | e | | | procedure are in the | | | | | | results section. | + +--------+ + + + | CBC WITH | Routin | 09/25/2014 | | Results for this | | DIFFERENTIAL | e | | | procedure are in the | | | | | | results section. | + +--------+ + + + | CULTURE, STOOL | Routin | 09/22/2014 | | Results for this | | RESULT | e | | | procedure are in the | | | | | | results section. | + +--------+ + + + | CLOSTRIDIUM | Routin | 09/22/2014 | | Results for this | | DIFFICILE | e | | | procedure are in the | | | | | | results section. | + +--------+ + + + documented in this encounter Results Basic Metabolic Panel (09/26/2014) + +-------+ + + + | Component | Value | Ref Range | Performed | Pathologist | | | | | At | Signature | + +-------+ + + + | Anion Gap | 9 | 7 - 21 mmol/L | [facility] | | [facility] | [facility] - | | | | | | [facility]ORY | | + +-------+ + + + | Bun/Creatin | 10 | 6 - 28.6 Ratio | [facility] | | | [facility] | [facility] - | | | | | | LABORATORY | | + +-------+ + + + + + | Specimen | + + | Blood specimen | | (specimen) | + + + + + + + | Performing | Address | City/State/Zipcode | Phone Number | | Organization | | | | + + + + + | [facility] [facility] | [address] | [place] | | | [facility] | | [id number], [facility] | | | - LABORATORY | | | | + + + + + External Lab: ENOCH (09/26/2014) + +-------+ + + + | Component | Value | Ref Range | Performed | Pathologist | | | | | At | Signature | + +-------+ + + + | ENOCH, | 10 | 6 - 23 | EXTERNAL | | | External | | | LAB | | + +-------+ + + + + + | Resulting Agency Comment | + + | [facility] | + + + +---------+ + + | Performing | Address | City/State/Zipcode | Phone Number | | Organization | | | | + +---------+ + + | EXTERNAL LAB | | | | + +---------+ + + External Lab: Glucose (09/26/2014) + +-------+ + + + | Component | Value | Ref Range | Performed | Pathologist | | | | | At | Signature | + +-------+ + + + | Glucose, | 97 | 70 - 100 | EXTERNAL | | | External | | | LAB | | + +-------+ + + + + + | Resulting Agency Comment | + + | [facility] | + + + +---------+ + + | Performing | Address | City/State/Zipcode | Phone Number | | Organization | | | | + +---------+ + + | EXTERNAL LAB | | | | + +---------+ + + External Lab: Magnesium (09/26/2014) + +-------+ + + + | Component | Value | Ref Range | Performed | Pathologist | | | | | At | Signature | + +-------+ + + + | Magnesium, | 1.9 | 1.7 - 2.5 | EXTERNAL | | | External | | | LAB | | + +-------+ + + + + + | Resulting Agency Comment | + + | [facility] | + + + +---------+ + + | Performing | Address | City/State/Zipcode | Phone Number | | Organization | | | | + +---------+ + + | EXTERNAL LAB | | | | + +---------+ + + External Lab: Calcium (09/26/2014) + +-------+ + + + | Component | Value | Ref Range | Performed | Pathologist | | | | | At | Signature | + +-------+ + + + | Calcium, | 8.8 | 8.4 - 10.2 | EXTERNAL | | | External | | | LAB | | + +-------+ + + + + + | Resulting Agency Comment | + + | [facility] | + + + +---------+ + + | Performing | Address | City/State/Zipcode | Phone Number | | Organization | | | | + +---------+ + + | EXTERNAL LAB | | | | + +---------+ + + External Lab: Carbon Dioxide (09/26/2014) + +-------+ + + + | Component | Value | Ref Range | Performed | Pathologist | | | | | At | Signature | + +-------+ + + + | Carbon | 27 | 19 - 31 | EXTERNAL | | | Dioxide, | | | LAB | | | External | | | | | + +-------+ + + + + + | Resulting Agency Comment | + + | [facility] | + + + +---------+ + + | Performing | Address | City/State/Zipcode | Phone Number | | Organization | | | | + +---------+ + + | EXTERNAL LAB | | | | + +---------+ + + External Lab: Chloride (09/26/2014) + +-------+ + + + | Component | Value | Ref Range | Performed | Pathologist | | | | | At | Signature | + +-------+ + + + | Chloride, | 105 | 95 - 112 | EXTERNAL | | | External | | | LAB | | + +-------+ + + + + + | Resulting Agency Comment | + + | [facility] | + + + +---------+ + + | Performing | Address | City/State/Zipcode | Phone Number | | Organization | | | | + +---------+ + + | EXTERNAL LAB | | | | + +---------+ + + External Lab: Potassium (09/26/2014) + +-------+ + + + | Component | Value | Ref Range | Performed | Pathologist | | | | | At | Signature | + +-------+ + + + | Potassium, | 3.8 | 3.6 - 5.1 | EXTERNAL | | | External | | | LAB | | + +-------+ + + + + + | Resulting Agency Comment | + + | [facility] | + + + +---------+ + + | Performing | Address | City/State/Zipcode | Phone Number | | Organization | | | | + +---------+ + + | EXTERNAL LAB | | | | + +---------+ + + External Lab: Sodium (09/26/2014) + +-------+ + + + | Component | Value | Ref Range | Performed | Pathologist | | | | | At | Signature | + +-------+ + + + | Sodium, | 137 | 132 - 143 | EXTERNAL | | | External | | | LAB | | + +-------+ + + + + + | Resulting Agency Comment | + + | [facility] | + + + +---------+ + + | Performing | Address | City/State/Zipcode | Phone Number | | Organization | | | | + +---------+ + + | EXTERNAL LAB | | | | + +---------+ + + External Lab: eGFR (09/26/2014) + +-------+ + + + | Component | Value | Ref Range | Performed | Pathologist | | | | | At | Signature | + +-------+ + + + | eGFR, | 63 | 60 | EXTERNAL | | | External | | | LAB | | + +-------+ + + + | eGFR, | | | EXTERNAL | | | | | | LAB | | | Ang[place], | | | | | | External | | | | | + +-------+ + + + + + | Specimen | + + | Blood specimen | | (specimen) | + + + + | Resulting Agency Comment | + + | [facility] | + + + +---------+ + + | Performing | Address | City/State/Zipcode | Phone Number | | Organization | | | | + +---------+ + + | EXTERNAL LAB | | | | + +---------+ + + External Lab: Creatinine (09/26/2014) + +-------+ + + + | Component | Value | Ref Range | Performed | Pathologist | | | | | At | Signature | + +-------+ + + + | Creatinine, | 1.00 | 0.6 - 1.35 | EXTERNAL | | | External | | | LAB | | + +-------+ + + + + + | Specimen | + + | Blood specimen | | (specimen) | + + + + | Resulting Agency Comment | + + | [facility] | + + + +---------+ + + | Performing | Address | City/State/Zipcode | Phone Number | | Organization | | | | + +---------+ + + | EXTERNAL LAB | | | | + +---------+ + + CBC with Differential (09/25/2014) + +-------+ + + + | Component | Value | Ref Range | Performed | Pathologist | | | | | At | Signature | + +-------+ + + + | MCH | 28.0 | 27.0 - 33.0 pg | | | + +-------+ + + + | MCHC | 34.0 | 30.0 - 36.0 % | | | + +-------+ + + + | % Basophils | 0.3 | 0.0 - 2.0 % | | | + +-------+ + + + + + | Specimen | + + | Blood specimen | | (specimen) | + + External Lab: Free Thyroxine Index (09/25/2014) + +-------+ + + + | Component | Value | Ref Range | Performed | Pathologist | | | | | At | Signature | + +-------+ + + + | Free | 1.16 | 0.71 - 1.7 | EXTERNAL | | | Thyroxine | | | LAB | | | Index, | | | | | | External | | | | | + +-------+ + + + + + | Resulting Agency Comment | + + | [facility] | + + + +---------+ + + | Performing | Address | City/State/Zipcode | Phone Number | | Organization | | | | + +---------+ + + | EXTERNAL LAB | | | | + +---------+ + + External Lab: Lipase (09/25/2014) + +-------+ + + + | Component | Value | Ref Range | Performed | Pathologist | | | | | At | Signature | + +-------+ + + + | Lipase, | 19 | 11 - | EXTERNAL | | | External | | | LAB | | + +-------+ + + + + + | Resulting Agency Comment | + + | [facility] | + + + +---------+ + + | Performing | Address | City/State/Zipcode | Phone Number | | Organization | | | | + +---------+ + + | EXTERNAL LAB | | | | + +---------+ + + External Lab: CBC (09/25/2014) + +-------+ + + + | Component | Value | Ref Range | Performed | Pathologist | | | | | At | Signature | + +-------+ + + + | WBC, | 8.8 | 4.5 - 11 | EXTERNAL | | | External | | | LAB | | + +-------+ + + + | HGB, | 12.5 | 12 - 16 | EXTERNAL | | | External | | | LAB | | + +-------+ + + + | HCT, | 36.9 | 35 - 45 | EXTERNAL | | | External | | | LAB | | + +-------+ + + + | PLT, | 226 | 140 - 440 | EXTERNAL | | | External | | | LAB | | + +-------+ + + + | Neutrophils | 66.1 | 39 - 80 | EXTERNAL | | | %, | | | LAB | | | External | | | | | + +-------+ + + + | Lymphocytes | 25.2 | 24 - 44 | EXTERNAL | | | %, | | | LAB | | | External | | | | | + +-------+ + + + | Monocytes | 7.5 | 0 - 12 | EXTERNAL | | | %, External | | | LAB | | + +-------+ + + + | Eosinophils | 0.9 | 0 - 6 | EXTERNAL | | | %, | | | LAB | | | External | | | | | + +-------+ + + + | RBC, | 4.44 | 3.8 - 5.1 | EXTERNAL | | | External | | | LAB | | + +-------+ + + + | MCV, | 83 | 81 - 99 | EXTERNAL | | | External | | | LAB | | + +-------+ + + + | RDW, | 12.6 | 10.6 - 15 | EXTERNAL | | | External | | | LAB | | + +-------+ + + + + + | Resulting Agency Comment | + + | [facility] | + + + +---------+ + + | Performing | Address | City/State/Zipcode | Phone Number | | Organization | | | | + +---------+ + + | EXTERNAL LAB | | | | + +---------+ + + External Lab: TSH (09/25/2014) + +-------+ + + + | Component | Value | Ref Range | Performed | Pathologist | | | | | At | Signature | + +-------+ + + + | TSH, | 2.49 | 0.27 - 4.2 | EXTERNAL | | | External | | | LAB | | + +-------+ + + + + + | Specimen | + + | Blood specimen | | (specimen) | + + + + | Resulting Agency Comment | + + | [facility] | + + + +---------+ + + | Performing | Address | City/State/Zipcode | Phone Number | | Organization | | | | + +---------+ + + | EXTERNAL LAB | | | | + +---------+ + + Clostridium difficile (09/22/2014) + + + + + + | Component | Value | Ref Range | Performed | Pathologist | | | | | At | Signature | + + + + + + | C DIFFICILE | Negative | | | | | ANTIGEN | | | | | + + + + + + | C difficile | Negative | | | | | Toxins | | | | | | A+B, EIA | | | | | + + + + + + + + | Specimen | + + | Stool specimen | | (specimen) - Stool | + + Culture, Stool Result (09/22/2014) + + + + + + | Component | Value | Ref Range | Performed | Pathologist | | | | | At | Signature | + + + + + + | Result | NegativeComment: No | | | | | | Growth of normal enteric | | | | | | gram-negative bacilli | | | | | | after overnight | | | | | | incubation. | | | | + + + + + + | Result 2 | ModerateComment: | | | | | | Moderate growth normal | | | | | | enteric leobardo | | | | + + + + + + | Result 3 | NegativeComment: No | | | | | | Salmonella, Shigella, | | | | | | Escherichia coli O1S7, | | | | | | Campylobacter, or | | | | | | Yersinia isolated. Not | | | | | | specifically tested for | | | | | | other enteric pathogens. | | | | + + + + + + + + | Specimen | + + | Stool specimen | | (specimen) - Stool | + + documented in this encounter Visit Diagnoses Not on filedocumented in this encounter"
--- OUTSIDE RECORDS SUMMARY | ~2020-06-25 | XMS | Encounter Summary ---
Demographics + + + | Address | [address] | | | [place] [address] | + + + | Home Phone | | + + + | Preferred Language | Unknown | + + + | Marital Status | | + + + | Presybeterian Affiliation | Unknown | + + + | Race | Unknown | + + + | Ethnic Group | Unknown | + + + Author + + + | Author | [facility] | | | and Jacobyana | + + + | Organization | [facility] | | | and Jacobyana [...] [place] | | | | | [address] | | + + + + + | Jules Osei | ECON | [address] | | | | | [place] | | | | | [address] | | + + + + + Care Team Providers + +------+ + | Care Park Interpretive Ranger Name | Role | Phone | + +------+ + | Johnson Iniguez | PCP | | | MD | | | + +------+ + Reason for Visit + +--------+ + | Reason | Onset | Comments | | | Date | | + +--------+ + | Appointment | 01/15/ | | | | 2015 | | + +--------+ + Encounter Details +--------+ + + + + | Date | Type | Department | Care Team | Description | +--------+ + + + + | 01/15/ | Telephone | [facility] | Edd Aiken MD | Appointment | | 2015 | | GASTROENTEROLOGY | [address] | | | | | [address] [facility] | [place], [place] | | | | | [address] [place] | [address] | | | | | [address] | [phone] | | | | | [phone] | | | +--------+ + + + [...] this encounter Miscellaneous Notes Telephone Encounter - Belgica Bennett - 02/19/2016 10:26 AM PDTPatient returned call to glen Fournier for result follow up. Patient scheduled fo 03/07/16 at 10:30. Closing phone n ote. elephone Encounter - Gege Daugherty - 02/19/2016 10:21 AM PDTLeft message to schedule an appointment [facility]. Left voicemail. Deferring for 3 days. elephone Encounter - Gege Daugherty - 02/11/2016 9:52 AM PDTLeft message to schedule appointment for this patient. Aske d patient to call back to schedule. Deferring for three days. elephone Encounter - Gege Daugherty - 02/08/2016 3:00 PM PDTLeft message to schedule this patient's appo intment. Asked patient to call back to schedule. Postponing for three days. elephone Encounter - Aishwarya Soria - 01/27/2016 3:01 PM PSTReceived gastric emptying study result asking to call patient t o [facility] Voice mail is full. elephone Encounter - Alix Yoo - 01/15/2016 12:18 PM PSTCALLED PATIENT TO SETUP 1ST BANDING APPT AND LEF T VOICEMAIL. NOTES IN PENDING TRAY. documented in this encounter Plan of Treatment Not on filedocumented as of this encounter Visit Diagnoses Not on filedocumented in this encounter"
--- OUTSIDE RECORDS SUMMARY | ~2020-06-25 | XMS | Encounter Summary ---
Demographics + + + | Address | [address] | | | [place] [address] | + + + | Home Phone | | + + + | Preferred Language | Unknown | + + + | Marital Status | | + + + | Islam Affiliation | Unknown | + + + | Race | Unknown | + + + | Ethnic Group | Unknown | + + + Author + + + | Author | [facility] | | | and Jacobyana | + + + | Organization | [facility] | | | and [...] [place] | | | | | [address] | | + + + + + | Jules Osei | ECON | [address] | | | | | [place] | | | | | [address] | | + + + + + Care Team Providers + +------+ + | Care Soup Mixer Name | Role | Phone | + +------+ + PCP | Unavailable | + +------+ + Encounter Details +--------+ + + + + | Date | Type | Department | Care Team | Description | +--------+ + + + + | 11/12/ | Hospital | [facility] | Kody Vuong, | | | 2004 | Encounter | [facility] | [id number] | | | | | [facility] [address] | [facility] [place] | | | | | [place], | [place] [address] | | | | | [place] [address] | [phone] | | | | | [phone] | | | +--------+ + + + [...]
--- OUTSIDE RECORDS SUMMARY | ~2020-06-25 | XMS | Encounter Summary ---
Demographics + + + | Address | [address] | | | [place] [address] | + + + | Home Phone | | + + + | Preferred Language | Unknown | + + + | Marital Status | | + + + | Sabianism Affiliation | Unknown | + + + | Race | Unknown | + + + | Ethnic Group | Unknown | + + + Author + + + | Author | [facility] | | | and Jacobyana | + + + | Organization | [facility] | | | and Jacobyana [...] [place] | | | | | [address] | | + + + + + | Jules Osei | ECON | [address] | | | | | [place] | | | | | [address] | | + + + + + Care Team Providers + +------+ + | Care Floor Scrubber Name | Role | Phone | + +------+ + PCP | Unavailable | + +------+ + Encounter Details +--------+ + + + + | Date | Type | Department | Care Team | Description | +--------+ + + + + | 09/24/ | Hospital | [facility] | Dontae Marquis | | | 2006 - | Encounter | [facility] | [address] [facility] | | | | | [facility] [address] [place], [place] | | | 09/26/ | | [place], | [address] | | | 2006 | | [place] [address] | [phone] | | | | | [phone] | | | +--------+ + + + [...]
--- OUTSIDE RECORDS SUMMARY | ~2020-06-25 | XMS | Encounter Summary ---
Demographics + + + | Address | [address] | | | [place] [address] | + + + | Home Phone | | + + + | Preferred Language | Unknown | + + + | Marital Status | | + + + | Buddhist Affiliation | Unknown | + + + | Race | Unknown | + + + | Ethnic Group | Unknown | + + + Author + + + | Author | [facility] | | | and Jacobyana | + + + | Organization | [facility] | | | and [...] [place] | | | | | [address] | | + + + + + | Jules Osei | ECON | [address] | | | | | [place] | | | | | [address] | | + + + + + Care Team Providers + +------+ + | Care Chain Hoist Operator Name | Role | Phone | + +------+ + PCP | Unavailable | + +------+ + Encounter Details +--------+ + + + + | Date | Type | Department | Care Team | Description | +--------+ + + + + | 12/16/ | Hospital | [facility] | Dontae Marquis | | | 2005 | Encounter | [facility] | MD [address] [facility] | | | | | [facility] [address] | [facility], [place] | | | | | [facility], | [address] | | | | | [place] [address] | [phone] | | | | | [phone] | | | +--------+ + + + [...]
--- OUTSIDE RECORDS SUMMARY | ~2020-06-25 | XMS | Encounter Summary ---
Demographics + + + | Address | [address] | | | [place] [address] | + + + | Home Phone | | + + + | Preferred Language | Unknown | + + + | Marital Status | | + + + | Gnosticism Affiliation | Unknown | + + + | Race | Unknown | + + + | Ethnic Group | Unknown | + + + Author + + + | Author | [facility] | | | and Jacobyana | + + + | Organization | [facility] | | | and Jacobyana | [...] [place] | | | | | [address] | | + + + + + | Jules Osei | ECON | [address] | | | | | [place] | | | | | [address] | | + + + + + Care Team Providers + +------+ + | Care Heading And Priming Operator Name | Role | Phone | [...] | | | | | | | [place] | | | | | | | ESOPHAGOGAST | | | | | | | RODUODENOSCO | | | | | | | PY TRANSORAL | | | | | | | DIAGNOSTIC | | | | | | | [place] | | | | | | | [...] + + + + | 12/08/ | Hospital | [facility] | Edd Aiken MD | Abdominal bloating | | 2016 | Encounter | [facility] | [address] | (Primary Dx); | | | | [address] | [place] | Nausea; Diarrhea; | | | | [place] | [address] | Rectal bleeding | | | | [address] | [phone] | | | | | [phone] | | | +--------+ + + + [...] + + + | Blood Pressure | 133/77 | 12/08/2015 10:45 AM | | | | | PST | | + + + + + | Pulse | 66 | 12/08/2015 10:45 AM | | | | | PST | | + + + + + | Temperature | 36.2 C (97.2 F) | 12/08/2015 9:48 AM | | | | | PST | | + + + + + | Respiratory Rate | 18 | 12/08/2015 10:45 AM | | | | | PST | | + + + + + | Oxygen Saturation | 97% | 12/08/2015 10:45 AM | | | | | PST | | + + + + + | Inhaled Oxygen | - | - | | | Concentration | | | | + + + + + | Weight | 100.7 kg (222 lb) | 12/08/2015 8:56 AM | | | | | PST | | + + + + + | Height | 172.7 cm (5' 8") | 12/08/2015 8:56 AM | | | | | PST | | + + + + + | Body Mass Index | 33.75 | 12/08/2015 8:56 AM | | | | | PST | | + + + + + documented in this encounter Discharge Instructions Instructions Edd Aiken MD - 12/07/2015Patient Discharge Instructions after an Endosco py Procedure ? You may resume your regular diet after discharge. ? Do not drive, operate machinery, make critical decisions or do activities that require co ordination or balance for 24hrs. ? Resume normal medications unless otherwise instructed. ? If biopsies were taken, the physician s office will contact you within 7-10 days. ? If a colonoscopy was performed, then you may continue to expel large amounts of air from your rectum. Please call the physician who did your procedure at [phone] if you have any questions or experience any of the following: ? Increasing abdominal pain, nausea, or vomiting. ? Chills and fever over 101F. ? New abdominal swelling or bloating. ? Signs of rectal bleeding (black or red stool). If you cannot get a hold of your physician, then call the [facility] [phone] . If necessary, report to the Emergency Department at [facility]. Quit smoking: If you smoke or have smoked within the last year, quitting is the most import ant thing you can do to protect and improve your health. documented in this encounter Medications at Time of Discharge + + + +---------+ + + | Medication | Sig | Dispensed | Refills | Start | End Date | | | | | | Date | | + + + +---------+ + + | ALPRAZolam (XANAX) | Take 0.5 mg by mouth | | 0 | | | | 0.5 mg tablet | 3 times daily as | | | | | | | needed. | | | | | + + + +---------+ + + | divalproex | Take 1,200 mg by | | 0 | | | | (DEPAKOTE) 500 mg EC | mouth Daily. | | | | | | tablet | | | | | | + + + +---------+ + + | ondansetron | Take 8 mg by mouth | | 0 | | | | (ZOFRAN ODT) 8 mg | every 8 hours as | | | | | | disintegrating | needed. | | | | | | tablet | | | | | | + + + +---------+ + + | traZODone | Take 50 mg by mouth | | 0 | | | | (DESYREL) 50 mg | nightly. | | | | | | tablet | | | | | | + + + +---------+ + + | dicyclomine | Take 1 capsule by | 120 | 0 | 11/26/19 | | | (BENTYL) 10 mg | mouth 4 times daily. | capsule | | 16 | 7 | | capsule | | | | | | + + + +---------+ + + documented as of this encounter Progress Notes Gladys Duncan, JESSY - 12/08/2015 11:06 AM PSTDr Attila in to talk with patient, co s tarting to get migraine headache, tylenol given per order. nausea improved, taking po fluids well. Electronically signed by: Gladys Duncan RN 12/08/2015 11:07 ladys Childers RN - 12/08/2015 10:34 AM PSTCo nausea, zofran given. Electronically signed by: Gladys Duncan RN 12/08/2015 10:34 documented in this encounter H&P Notes Edd Aiken MD - 12/08/2015 9:50 AM PSTPatient interviewed, history and physical, symp toms reviewed VS signs noted, no change from previous H&P or assessment and plan.Electronic ally signed by Edd Aiken MD at 12/08/2015 9:51 AM PSTMildred Cardoza ARNP - 11/26 9:41 AM PST Dali Osei is a 35 y.o. female here for followup gastroparesis History of present illness: Patient notes that she was treated for gastroparesis 11/2014. Was feeling well and as she st arted diet. Continued to feel well until 03/5015. About 6 months ago, she stopped Reglan due to feeling "shaky". She also reports that she is undergoing testing for [place]'s disease. Notes negative testi ng for Celiac [...] NM Gastric Emptying Ambulatory referral to Gastroenterology ([facility]) 2. Abdominal bloating NM Gastric Emptying Ambulatory referral to Gastroenterology ([facility]) 3. Heartburn NM Gastric Emptying Ambulatory referral to Gastroenterology ([facility]) 4. Rectal bleeding Ambulatory referral to Gastroenterology ([facility]) 5. Diarrhea Ambulatory referral to Gastroenterology ([facility]) 6. 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 Ambulatory referral to Gastroente rology ([facility]) Plan: Patient to have EGD and colonoscopy [...] | + +--------+ + + + | EGD / COLONOSCOPY | | 12/08/2015 | Nausea Abdominal | | | | | 8:58 AM | bloating Rectal | | | | | PST | bleeding Diarrhea | | | | | | Chronic use of | | | | | | benzodiazepine for | | | | | | therapeutic purpose | | + +--------+ + + + | COLONOSCOPY | Routin | 12/08/2015 | | | | | e | 8:36 AM | | | | | | PST | | | + +--------+ + + + | EGD | Routin | 12/08/2015 | | Results for this | | | e | 8:36 AM | | procedure are in the | | | | PST | | results section. | + +--------+ + + + | COLONOSCOPY | Routin | 12/08/2015 | | Results for this | | | e | 8:35 AM | | procedure are in the | | | | PST | | results section. | + +--------+ + + + | EGD | Routin | 12/08/2015 | | | | | e | 8:35 AM | | | | | | PST | | | + +--------+ + + + | SURGICAL PATHOLOGY | Routin | 12/08/2015 | | Results for this | | EXAM | e | 12:00 AM | | procedure are in the | | | | PST | | results section. | + +--------+ + + + documented in this encounter Results EGD (12/08/2015 8:36 AM PST) + + | Specimen | + + | | + + + + + | Narrative | Performed At | + + + | Gastroenterology Patient Name: Dali Osei Procedure Date: | [facility] | | 12/08/2015 8:36 AM Date of | [facility] | | : 1980 Admit Type: Ambulatory Age: 35 Room: [facility] 02 | | | Gender: Female Note Status: Finalized Attending MD: Edd Andres | | | MD Attila Procedure: Upper GI endoscopy Indications: | | | Dyspepsia, Heartburn, Diarrhea, Nausea Providers: | | | Edd Aiken MD, Britney Zavala RN, [facility] | | | Nataly, Clam Shovel Operator, Crispin Tang MD (Anesthesia Staff) | | | Referring MD: Martin Iniguez MD (Referring MD) | | | Medicines: Monitored Anesthesia Care Complications: | | | No immediate complications. Procedure: Pre-Anesthesia | | | Assessment: - Prior to the procedure, a History and Physical | | | was performed, and patient medications and allergies were | | | reviewed. The patient is competent. The risks and benefits of | | | the procedure and the sedation options and risks were | | | discussed with the patient. All questions were answered and | | | informed consent was obtained. Patient identification and | | | proposed procedure were verified by the physician, the nurse, the | | | anesthesiologist and the account technician in the pre-procedure area in | | | the endoscopy suite. Mental Status Examination: alert and | | | oriented. Airway Examination: normal oropharyngeal airway and | | | neck mobility. Respiratory Examination: clear to | | | auscultation. CV Examination: normal. Prophylactic | | | Antibiotics: The patient does not require prophylactic antibiotics. | | | Prior Anticoagulants: The patient has taken no previous | | | anticoagulant or antiplatelet agents. ASA Grade Assessment: | | | III - A patient with severe systemic disease. After reviewing | | | the risks and benefits, the patient was deemed in | | | satisfactory condition to undergo the procedure. The | | | anesthesia plan was to use monitored anesthesia care (MAC). | | | Immediately prior to administration of medications, the | | | patient was re-assessed for adequacy to receive sedatives. | | | The heart rate, respiratory rate, oxygen saturations, blood | | | pressure, adequacy of pulmonary ventilation, and response to | | | care were monitored throughout the procedure. The physical | | | status of the patient was re-assessed after the procedure. | | | After obtaining informed consent, the endoscope was passed under | | | direct vision. Throughout the procedure, the patient's blood | | | pressure, pulse, and oxygen saturations were monitored | | | continuously. The endoscope was introduced through the mouth, | | | and advanced to the third part of duodenum. The upper GI | | | endoscopy was accomplished without difficulty. The patient | | | tolerated the procedure well. Findings: The examined | | | esophagus was normal. Biopsies were taken with a cold forceps | | | for histology. Verification of patient identification for the | | | specimen was done by the physician and nurse using the patient's | | | name and date. Estimated blood loss was minimal. | | | Diffuse mildly erythematous mucosa without bleeding was found in | | | the entire examined stomach. Biopsies were taken with a cold | | | forceps for histology. Verification of patient identification | | | for the specimen was done by the physician and nurse using | | | the patient's name and date. Estimated blood loss was | | | minimal. The cardia and gastric fundus were normal on | | | retroflexion. The duodenal bulb, 2nd part of the duodenum and | | | 3rd part of the duodenum were normal. Biopsies were taken | | | with a cold forceps for histology. Verification of patient | | | identification for the specimen was done by the physician and | | | nurse using the patient's name and date. Estimated | | | blood loss was minimal. Impression: - Normal esophagus. | | | Biopsied. - Erythematous mucosa in the stomach. Biopsied. | | | - Normal duodenal bulb, 2nd part of the duodenum and 3rd part of | | | the duodenum. Biopsied. Recommendation: - Patient | | | has a contact number available for emergencies. The signs and | | | symptoms of potential delayed complications were discussed with the | | | patient. Return to normal activities tomorrow. Written | | | discharge instructions were provided to the patient. | | | - High fiber diet indefinitely. - Discharge patient to home. | | | - Follow an antireflux regimen. - Continue present | | | medications. - Await pathology results. - Return to GI | | | clinic PRN. - The findings and recommendations were discussed | | | with the patient. Edd Aiken MD 12/08/2015 9:19 AM Number of | | | Addenda: 0 Note Initiated On: 12/08/2015 8:36 AM Scope Withdrawal | | | Time: 0 hours 0 minutes 0 seconds Total Procedure Duration: 0 hours | | | 10 minutes 49 seconds Scope In: 9:03:33 AM Scope Out: 9:14:22 AM | | | [facility], [address] | | | [place] [address] | | + + + + +---------+ + + | Performing | Address | City/State/Zipcode | Phone Number | | Organization | | | | + +---------+ + + | [facility] [place] | | | | + +---------+ + + COLONOSCOPY (12/08/2015 8:35 AM PST) + + | Specimen | + + | | + + + + + | Narrative | Performed At | + + + | Gastroenterology Patient Name: Dali Osei Procedure Date: | [place] | | 12/08/2015 8:35 AM Date of | [facility] | | : 1980 Admit Type: Ambulatory Age: 35 Room: [facility] 02 | | | Gender: Female Note Status: Finalized Attending MD: Edd Andres | | | MD Attila Procedure: Colonoscopy Indications: | | | Hematochezia, Chronic diarrhea Providers: Edd Andres | | | MD Attila, Britney Zavala RN, [facility] | | | Nataly, Clam Shovel Operator, Crispin Tang MD (Anesthesia Staff) Referring | | | MD: Martin Iniguez MD (Referring MD) Medicines: | | | Monitored Anesthesia Care Complications: No immediate | | | complications. Procedure: Pre-Anesthesia Assessment: | | | - Prior to the procedure, a History and Physical was performed, and | | | patient medications and allergies were reviewed. The patient is | | | competent. The risks and benefits of the procedure and the | | | sedation options and risks were discussed with the patient. | | | All questions were answered and informed consent was | | | obtained. Patient identification and proposed procedure were | | | verified by the physician, the nurse, the anesthesiologist | | | and the account technician in the pre-procedure area in the endoscopy | | | suite. Mental Status Examination: alert and oriented. Airway | | | Examination: normal oropharyngeal airway and neck mobility. | | | Respiratory Examination: clear to auscultation. CV | | | Examination: normal. Prophylactic Antibiotics: The patient | | | does not require prophylactic antibiotics. Prior | | | Anticoagulants: The patient has taken no previous anticoagulant or | | | antiplatelet agents. ASA Grade Assessment: III - A patient with | | | severe systemic disease. After reviewing the risks and | | | benefits, the patient was deemed in satisfactory condition to | | | undergo the procedure. The anesthesia plan was to use | | | monitored anesthesia care (MAC). Immediately prior to | | | administration of medications, the patient was re-assessed for | | | adequacy to receive sedatives. The heart rate, respiratory rate, | | | oxygen saturations, blood pressure, adequacy of pulmonary | | | ventilation, and response to care were monitored throughout | | | the procedure. The physical status of the patient was | | | re-assessed after the procedure. After I obtained informed | | | consent, the scope was passed under direct vision. Throughout | | | the procedure, the patient's blood pressure, pulse, and | | | oxygen saturations were monitored continuously. The endoscope was | | | introduced through the anus and advanced to the terminal ileum, | | | with identification of the appendiceal orifice and IC valve. | | | The colonoscopy was performed without difficulty. The patient | | | tolerated the procedure well. The quality of the bowel | | | preparation was good. Findings: The perianal and digital | | | rectal examinations were normal. The colon (entire examined | | | portion) appeared normal. Biopsies were taken with a cold | | | forceps from the right colon and left colon for evaluation of | | | microscopic colitis. Verification of patient identification for the | | | specimen was done by the physician and nurse using the | | | patient's name and date. Estimated blood loss was | | | minimal. Non-bleeding internal hemorrhoids were found during | | | retroflexion and were small. No additional | | | abnormalities were found on retroflexion. The terminal ileum | | | appeared normal. Impression: - The entire examined colon is | | | normal. Biopsied. - Non-bleeding internal hemorrhoids. | | | - The examined portion of the ileum was normal. Recommendation: | | | - Patient has a contact number available for emergencies. The | | | signs and symptoms of potential delayed complications were | | | discussed with the patient. Return to normal activities | | | tomorrow. Written discharge instructions were provided to the | | | patient. - High fiber diet indefinitely. - Discharge | | | patient to home. - Continue present medications. - | | | Await pathology results. - Repeat colonoscopy at age 48 for | | | screening purposes. - Return to GI clinic PRN. - The | | | findings and recommendations were discussed with the patient. Edd | | | Mckenna Aiken MD 12/08/2015 9:47 AM Number of Addenda: 0 Note Initiated | | | On: 12/08/2015 8:35 AM Scope Withdrawal Time: 0 hours 15 minutes 36 | | | seconds Total Procedure Duration: 0 hours 23 minutes 1 second | | | Scope In: 9:18:50 AM Scope Out: 9:41:[address] | | | [facility], [address], [place] [address] | | | [phone] | | + + + + +---------+ + + | Performing | Address | City/State/Zipcode | Phone Number | | Organization | | | | + +---------+ + + | [facility] [place] | | | | + +---------+ + + Surgical Pathology Exam (12/08/2015 12:00 AM PST) + + | Specimen | + + | | + + + + + | Narrative | Performed At | + + + | SPECIMEN(S): A DUODENAL BIOPSY SPECIMEN(S): B GASTRIC BIOPSY | [facility] | | SPECIMEN(S): C DISTAL ESOPHAGEAL BIOPSY SPECIMEN(S): D MID ESOPHAGEAL | [facility] | | BIOPSY SPECIMEN(S): E RIGHT COLON BIOPSY SPECIMEN(S): F LEFT COLON | | | BIOPSY SPECIMEN SOURCE: A. DUODENAL BIOPSY B. GASTRIC BIOPSY C. | | | DISTAL ESOPHAGEAL BIOPSY D. MID ESOPHAGEAL BIOPSY E. RIGHT COLON | | | BIOPSY F. LEFT COLON BIOPSY CLINICAL HISTORY: R11.0 (nausea), | | | R14.0 (abdominal distention [gaseous]), K62.5 (hemorrhage of anus and | | | rectum), R19.7 (diarrhea, unspecified), Z79.899 (other long-term | | | [current] drug therapy) MICROSCOPIC DESCRIPTION: Histologic | | | sections of all submitted blocks are examined by light microscopy. | | | These findings, together with the gross examination, support the | | | pathologic diagnosis. FINAL PATHOLOGIC DIAGNOSIS: A. Duodenum, | | | biopsies: - Fragments of benign duodenal mucosa, negative for | | | celiac disease. B. Stomach, biopsies: - Fragments of benign | | | gastric mucosa with mild chronic inflammation. - No Helicobacter | | | pylori organisms identified. - No intestinal metaplasia identified. | | | - No dysplasia identified. C. Esophagus, distal, biopsies: - | | | Benign esophageal squamous mucosa. - Negative for reflux | | | esophagitis. - Negative for eosinophilic esophagitis. - Negative | | | for intestinal metaplasia (Parekh's esophagus). - Negative for | | | dysplasia. D. Esophagus, mid, biopsies: - Benign esophageal | | | squamous mucosa. - Negative for reflux esophagitis. - Negative | | | for eosinophilic esophagitis. - Negative for intestinal metaplasia | | | (Parekh's esophagus). - Negative for dysplasia. E. Colon, | | | right, biopsies: - Fragments of benign colonic mucosa with lymphoid | | | aggregates. - Negative for acute or chronic colitis. - Negative | | | for microscopic colitis. - Negative for dysplasia. F. | | | Colon, left, biopsies: - Fragments of benign colonic mucosa with | | | lymphoid aggregates. - Negative for acute or chronic colitis. - | | | Negative for microscopic colitis. - Negative for dysplasia. | | | [facility]:C2NR GROSS DESCRIPTION: The specimen is received in six | | | parts. A. The specimen is labeled "Dali sOei" and | | | designated "duodenal biopsy" on the requisition. Received in formalin | | | are six cream to reveles colored tissue fragments, 0.2-0.5 cm, all into | | | (A1). B. The specimen is labeled "Dali Osei" and | | | designated "gastric bx" on the requisition. Received in formalin are | | | three reveles colored tissue fragments, 0.3-0.6 cm, all into (B1). C. | | | The specimen is labeled "Dali Osei" and designated | | | "distal esophageal bx" on the requisition. Received in formalin are | | | two cream colored tissue fragments, 0.2-0.35 cm, all into (C1). D. | | | The specimen is labeled "Dali Osei Meg" and designated "mid | | | esophageal bx" on the requisition. Received in formalin are three | | | cream colored tissue fragments 0.2-0.3 cm, all into (D1). E. | | | The specimen is labeled "Dali Osei Mge" and designated "right | | | colon bx" on the requisition. Received in formalin are four | | | yellow-reveles colored tissue fragments, 0.25-1 cm, all into (E1). F. | | | The specimen is labeled "Alli Oseielle Meg" and designated "left | | | colon bx" on the requisition. Received in formalin are seven cream | | | colored tissue fragments, 0.2-0.6 cm, all into (F1). yt:KARMA:marc | | | PERFORMING LABORATORY: Tissue processing and slide preparation were | | | performed by [email or web address], [address] [place] [address] | | | [place] [address] (Front Desk Auxiliary: Austin Metcalf M.D. CLIA#: | | | [id number]). Professional interpretation was performed by [facility] | | [facility], [facility], [address] [place] [address] | | | Ave[address] [place] [address] (Front Desk Auxiliary: Trever Tee, | | | Zoë; CLIA#: [id number]). Diagnostician: Trever Tee MD | | | Pathologist Electronically Signed 12/09/2015 | | + + + + +---------+ + + | Performing | Address | City/State/Zipcode | Phone Number | | Organization | | | | + +---------+ + + | [facility] | | | | | [facility] | | | | + +---------+ + + documented in this encounter Visit Diagnoses + + | Diagnosis | + + | Abdominal bloating - Primary Flatulence, eructation, and gas pain | + + | Nausea Nausea alone | + + | Diarrhea | + + | Rectal bleeding Hemorrhage of rectum and anus | + + documented in this encounter Administered Medications + +--------+ + +------+------+ | Medication Order | MAR | Action | Dose | Rate | Site | | | Action | Date | | | | + +--------+ + +------+------+ | acetaminophen (TYLENOL) tablet | Given | 12/08/19 | 1,000 mg | | | | 500-1,000 mg 500-1,000 mg, Oral, | | 16 10:57 | | | | | EVERY 4 HOURS PRN, Pain, | | AM PST | | | | | Starting 12/08/15 at 1050, | | | | | | | Post-op/Phase II | | | | | | + +--------+ + +------+------+ +---+---+ | | | +---+---+ + +---------+ +---+-------+---+ | lactated ringers (LR) infusion | New Bag | 12/08/19 | | 100 | | | at 100 mL/hr, Intravenous, | | 16 8:52 | | mL/hr | | | CONTINUOUS, Starting 12/08/15 | | AM PST | | | | | at 0900, Pre-op | | | | | | + +---------+ +---+-------+---+ +---+---+ | | | +---+---+ + +-------+ +------+---+---+ | ondansetron (ZOFRAN) injection | Given | 12/08/19 | 4 mg | | | | 4 mg 4 mg, Intravenous, EVERY 6 | | 16 10:33 | | | | | HOURS PRN, Nausea, Vomiting, | | AM PST | | | | | Starting 12/08/15 at 1003, | | | | | | | First line agent. Use PO option | | | | | | | unless NPO status or unable to | | | | | | | tolerate., Post-op/Phase II | | | | | | + +-------+ +------+---+---+ +---+---+ | | | +---+---+ documented in this encounter
--- OUTSIDE RECORDS SUMMARY | ~2020-06-25 | XMS | Encounter Summary ---
Demographics + + + | Address | [address] | | | [place] [address] | + + + | Home Phone | | + + + | Preferred Language | Unknown | + + + | Marital Status | | + + + | Gnosticism Affiliation | Unknown | + + + | Race | Unknown | + + + | Ethnic Group | Unknown | + + + Author + + + | Author | [facility] | | | and Jacobyana | + + + | Organization | [facility] | | | and Jacobyana [...] [place] | | | | | [address] | | + + + + + | Jules Osei | ECON | [address] | | | | | [place] | | | | | [address] | | + + + + + Care Team Providers + +------+ + | Care Intermission Coordinator Name | Role | Phone | + +------+ + | Johnson Iniguez | PCP | | | MD | | | + +------+ + Reason for Visit +--------+--------+ + | Reason | Onset | Comments | | | Date | | +--------+--------+ + | Other | 11/30/ | gastric emptying study | | | 2015 | | +--------+--------+ + Encounter Details +--------+ + + + + | Date | Type | Department | Care Team | Description | +--------+ + + + + | 11/30/ | Telephone | [facility] [place] | [facility], | Other (gastric | | 2015 | | GASTROENTEROLOGY | ROB [address] | emptying study) | | | | [address] | [address] | | | | | [address] [place] | [place] | | | | | [address] | [address] | | | | | [phone] | | | +--------+ + + + [...] this encounter Miscellaneous Notes Telephone Encounter - Amber Ruiz Medical Assistant - 12/02/2015 2:11 PM PSTSpoke to patient, she is going to have gastric emptying study done at [facility] Faxed order.El ectronically signed by Asa Nails at 12/02/2015 2:11 PM PSTTeleph one Encounter - Amber Ruiz Medical Assistant - 11/30/2015 2:25 PM PSTLeft message for patient to call back. Her gastric emptying study has been approved. Where would she like to have this done? 16 2:25 PM PSTdocumented in this encounter Plan of Treatment Not on filedocumented as of this encounter Visit Diagnoses Not on filedocumented in this encounter"
--- OUTSIDE RECORDS SUMMARY | ~2020-06-25 | XMS | Encounter Summary ---
Demographics + + + | Address | [address] | | | [place] [address] | + + + | Home Phone | | + + + | Preferred Language | Unknown | + + + | Marital Status | | + + + | Caodaism Affiliation | Unknown | + + + | Race | Unknown | + + + | Ethnic Group | Unknown | + + + Author + + + | Author | and [facility] | | | and Jacobyana | + + + | Organization | and [facility] | | | and [...] [place] | | | | | [address] | | + + + + + | Jules Osei | ECON | [address] | | | | | [place] | | | | | [address] | | + + + + + Care Team Providers + +------+ + | Care Director Of Marketing Name | Role | Phone | + [...] | | | | | | | [place] | | | | | | | ESOPHAGOGAST | | | | | | | RODUODENOSCO | | | | | | | PY TRANSORAL | | | | | | | DIAGNOSTIC | | | | | | | [place] | | | | | | | [...] Description | +--------+---------+ + + + | 12/08/ | Surgery | [facility] | Edd Aiken MD | EGD / COLONOSCOPY | | 2016 | | MED [facility] | [address] | | | | | [address] | [place] | | | | | [place] | [address] | | | | | [address] | [phone] | | | | | [phone] | | | +--------+---------+ + + + [...] + + + | Blood Pressure | 148/85 | 12/08/2015 8:56 AM | | | | | PST | | + + + + + | Pulse | 95 | 12/08/2015 8:56 AM | | | | | PST | | + + + + + | Temperature | 36.4 C (97.5 F) | 12/08/2015 8:56 AM | | | | | PST | | + + + + + | Respiratory Rate | 18 | 12/08/2015 8:56 AM | | | | | PST | | + + + + + | Oxygen Saturation | 97% | 12/08/2015 8:56 AM | | | [...] the physician who did your procedure at [phone] if you have any questions or experience any of the following: ? Increasing abdominal pain, nausea, or vomiting. ? Chills and fever over 101F. ? New abdominal swelling or bloating. ? Signs of rectal bleeding (black or red stool). If you cannot get a hold of your physician, then call the [facility] [phone] . If necessary, report to the Emergency Department at [facility]. Quit smoking: If you smoke or have [...] as of this encounter Progress Notes Gladys Duncan RN - 12/08/2015 11:06 AM PSTDr Attila in [...] NM Gastric Emptying Ambulatory referral to Gastroenterology ([facility]) 2. Abdominal bloating NM Gastric Emptying Ambulatory referral to Gastroenterology ([facility]) 3. Heartburn NM Gastric Emptying Ambulatory referral to Gastroenterology ([facility]) 4. Rectal bleeding Ambulatory referral to Gastroenterology ([facility]) 5. Diarrhea Ambulatory referral to Gastroenterology ([facility]) 6. 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 Ambulatory referral to Gastroente rology ([facility]) Plan: Patient to have EGD [...] Procedure Date: | MT | | 12/08/2015 8:36 AM Date of | PROVATION | | : 1980 Admit Type: Ambulatory Age: 35 Room: [facility] 02 | | | Gender: Female Note Status: Finalized Attending MD: Edd Andres | | | MD Attila Procedure: Upper GI endoscopy Indications: | | | Dyspepsia, Heartburn, Diarrhea, Nausea Providers: | | | Edd Aiken MD, Britney Zavala RN, [facility] | | | Nataly, Drum Sander Offbearer, Crispin Tang MD (Anesthesia Staff) | | [...] the | | | anesthesiologist and the page technician in the pre-procedure area in | [...] Scope Out: 9:14:22 AM | | | [facility], [address] [address] [facility] | | | [place] [address] | | + + + + +---------+ [...] Procedure Date: | WAMT | | 12/08/2015 8:35 AM Date of | PROVATION | | : 1980 Admit Type: Ambulatory Age: 35 Room: [facility] 02 | | | Gender: Female Note Status: Finalized Attending MD: Edd Andres | | | MD Attila Procedure: Colonoscopy Indications: | | | Hematochezia, Chronic diarrhea Providers: Edd Andres | | | MD Attila, Britney Zavala RN, [facility] | | | Nataly, Drum Sander Offbearer, Crispin Tang MD (Anesthesia Staff) Referring | [...] the anesthesiologist | | | and the page technician in the pre-procedure area in the [...] In: 9:18:50 AM Scope Out: 9:41:[address] | | | [facility], [address] , [place] [address] | | | [phone] | | + + + + +---------+ [...] - Negative for dysplasia. | | | [facility]:C2NR GROSS DESCRIPTION: The specimen is received in six | | | parts. A. The specimen is labeled "Dali Osei" and | | | designated "duodenal biopsy" on the requisition. Received in formalin | | | are six cream to reveles colored tissue fragments, 0.2-0.5 cm, all into | | | (A1). B. The specimen is labeled "Dali Osei Meg" and | | | designated "gastric bx" on the requisition. Received in formalin are | | | three reveles colored tissue fragments, 0.3-0.6 cm, all into (B1). C. | | | The specimen is labeled "Dali Osei Meg" and designated | | | "distal esophageal [...] is labeled "Alli Oseielle Meg" and designated "right | | | colon bx" on the requisition. Received in formalin are four | | | yellow-reveles colored tissue fragments, 0.25-1 cm, all into (E1). F. | | | The specimen is labeled "Osei, Dali Meg" and designated "left | | | colon bx" on the requisition. Received in formalin are seven cream | | | colored tissue fragments, 0.2-0.6 cm, all into (F1). yt:JVR:smh | | | PERFORMING LABORATORY: Tissue processing and slide preparation were | | | performed by [facility], [address] [place] [address] | | | [place] [address] ([employer]: Austin Metcalf M.D. CLIA#: | | | [id number]). Professional interpretation was performed by [facility] | | | [facility], Located Within [facility], [address] [place] [address] | | | Ave[address] [place] [address] (Engineer Operations And Maintenance: Trever Tee, | | | Zoë; CLIA#: [id number]). Diagnostician: Trever Tee MD | | | [...] | Diagnosis | + + | Nausea Nausea alone | + + | Abdominal bloating Flatulence, eructation, and gas pain | + + | Rectal bleeding Hemorrhage [...]
--- OUTSIDE RECORDS SUMMARY | ~2020-06-25 | XMS | Encounter Summary ---
Demographics + + + | Address | [address] | | | [place] [address] | + + + | Home Phone | | + + + | Preferred Language | Unknown | + + + | Marital Status | | + + + | Mormonism Affiliation | Unknown | + + + | Race | Unknown | + + + | Ethnic Group | Unknown | + + + Author + + + | Author | [facility] | | | and Jacobyana | + + + | Organization | [facility] | | | and Jacobyana | [...] [place] | | | | | [address] | | + + + + + | Jules Osei | ECON | [address] | | | | | [place] | | | | | [address] | | + + + + + Care Team Providers + +------+ + | Care Final Touch Up Painter Name | Role | Phone | + +------+ + PCP | Unavailable | + +------+ + Encounter Details +--------+ + + + + | Date | Type | Department | Care Team | Description | +--------+ + + + + | 01/13/ | Hospital | [facility] | Dontae Marquis | | | 2005 | Encounter | [facility] | MD Gy[address] [facility] | | | | | [facility] [address] | [facility], [place] | | | | | [facility], | [address] | | | | | [place] [address] | [phone] | | | | | [phone] | | | +--------+ + + + [...]
--- OUTSIDE RECORDS SUMMARY | ~2020-06-25 | XMS | Encounter Summary ---
Demographics + + + | Address | [address] | | | [place] [address] | + + + | Home Phone | | + + + | Preferred Language | Unknown | + + + | Marital Status | | + + + | Jew Affiliation | Unknown | + + + | Race | Unknown | + + + | Ethnic Group | Unknown | + + + Author + + + | Author | [facility] | | | and Jacobyana | + + + | Organization | [facility] | | | and [...] [place] | | | | | [address] | | + + + + + | Jules Osei | ECON | [address] | | | | | [place] | | | | | [address] | | + + + + + Care Team Providers + +------+ + | Care Green Chain Offbearer Name | Role | Phone | + +------+ + | Johnson Iniguez | PCP | | | MD | | | + +------+ + Encounter Details +--------+ + + + + | Date | Type | Department | Care Team | Description | +--------+ + + + + | // | Orders Only | [facility] [place] | [facility], | Diarrhea; | | 2015 | | GASTROENTEROLOGY | [address] | Abdominal cramping | | | | [address] | [address] | | | | | [address] [place], [place] | [place] | | | | | [address] | [address] | | | | | [phone] | | | +--------+ + + + [...] | Diagnosis | + + | Diarrhea | + + | Abdominal cramping Abdominal pain, unspecified site | + + documented in this encounter"
== END 2020-06-25 20:47 | disposition home or self-care (01) ==
LOC: ED 20:03
DX: T63.441A Toxic effect of venom of bees, accidental (unintentional), initial encounter (principal); F41.9 Anxiety disorder, unspecified; F31.9 Bipolar disorder, unspecified; Z91.030 Bee allergy status; Z88.6 Allergy status to analgesic agent; Z91.040 Latex allergy status; Z79.899 Other long term (current) drug therapy
CPT/HCPCS: 99283; Q0163

== ENCOUNTER 2021-05-06 22:26 | Emergency (ER) | payer OTHER ==
[~2021-05-06] VITALS: Ht 172.7 cm; Wt 82.1 kg
--- NOTE | 2021-05-07 02:33 | EKG ---
[facility] [address] [facility] [place], [place] [address] Signed Normal sinus rhythm with sinus arrhythmia Normal ECG No previous ECGs available Confirmed by IDRIS JIMENEZ MD ([id number]) on 05/07/2021 2:33:34 AM Electronically Signed By: IDRIS JIMENEZ MD 05/07/21 0233 PATIENT NAME: LIANNA FARR Electrocardiogram DATE OF : 76 PHYSICIAN: IDRIS JIMENEZ MD REPORT #: [id number] REPORT IS CONFIDENTIAL AND NOT TO BE RELEASED WITHOUT AUTHORIZATION
== END 2021-05-07 04:42 | disposition home or self-care (01) ==
LOC: ED 22:26
DX: R51.9 Headache, unspecified (principal); R03.0 Elevated blood-pressure reading, without diagnosis of hypertension; Z91.030 Bee allergy status; Z91.040 Latex allergy status; Z88.6 Allergy status to analgesic agent
CPT/HCPCS: 70450; 71045; 80053; 83735; 84484; 85025; 93005; 93010; 96374; 96375; 99284-25; J1200; J1885; J2765; J7030

== ENCOUNTER 2021-07-29 07:00 | Day surgery (SDC) | payer OTHER ==
[~2021-07-29] VITALS: Ht 172.7 cm; Wt 92.7 kg
--- NOTE | ~2021-07-29 | OR ---
[facility] [address] [place], [place] [address] Draft DATE OF OPERATION: 07/29/2021 SURGEON: Russ Mueller, DO PROCEDURES: Total laparoscopic hysterectomy, bilateral salpingectomy, and cystoscopy. PREOPERATIVE DIAGNOSES: Abnormal uterine bleeding, pelvic pain. POSTOPERATIVE DIAGNOSES: Abnormal uterine bleeding, pelvic pain. ANESTHESIA: General. BLOOD LOSS: 75 mL. FINDINGS: Minimally enlarged uterus, normal-appearing bilateral tubes and ovaries with scarring of the bladder over prior incision site. Filmy adhesions of omentum extending to the right lower uterine segment and abdominal wall. INDICATION: The patient is a 40-year-old female who previously failed medical management of AUB with increasingly heavy periods. Risks, benefits, alternatives to definitive surgical management were discussed. She elected to proceed. PROCEDURE IN DETAIL: The patient was taken to the operating room where she was given 2 g Ancef, 5000 units heparin subcu preoperatively. She was placed under general anesthesia and positioned in dorsal lithotomy position. She was prepped and draped in normal sterile fashion. A weighted speculum was placed in the vagina after placing a Cummins catheter and anterior lip of the cervix was grasped with Allis clamp. Cervix was easily sequentially dilated with Hegar dilators to accommodate a medium-sized VCare manipulator which was placed without difficulty. All other instrumentation was removed from the vagina. Surgeon's gloves were changed and attention was turned to the abdomen. Local anesthetic was injected infraumbilically and an infraumbilical horizontal curvilinear incision was made and carried down to fascia with blunt and sharp dissection with Metzenbaum scissors. PATIENT NAME: LIANNA PATTON OPERATIVE REPORT DATE OF : 76 REPORT #: [id number] PHYSICIAN: RUSS MUELLER DO PCP: JOSHUA MARROQUIN MD REPORT IS CONFIDENTIAL AND NOT TO BE RELEASED WITHOUT AUTHORIZATION [facility] [address] [place], [place] [address] Draft Fascia was incised with Metzenbaum. Inferior lip and superior lip were each tagged with 0 Vicryl and peritoneum was entered bluntly. Michelle trocar was placed without difficulty and scope confirmed intraabdominal placement. Pneumoperitoneum was achieved with CO2 gas. A 5 mm left-sided assist port and 8 mm expanding trocar were placed under local anesthesia and under direct visualization. The abdomen was then surveyed with findings as noted above. LigaSure was used to gently cauterize and take down omental adhesions, restoring normal anatomy. Left tube was grasped and elevated. The LigaSure device was used to cauterize and cut along the mesosalpinx to the cornea where the tube was transected and removed from the abdomen under direct visualization. In a similar manner, the right tube was then grasped and elevated at the fimbriated end and LigaSure device was used to cut and cauterize along the mesosalpinx until the cornua where tube was transected and removed from the abdomen under direct visualization. Right utero-ovarian ligament was cauterized and cut with LigaSure device. In a similar manner, the left utero-ovarian ligament was cauterized and cut with ligature. Next, the left round ligament was cauterized and cut and broad ligament was entered and dissected down anterior and posteriorly to the level of the bladder flap and the uterosacral ligaments, uterine vessels were cauterized with LigaSure device. Attention was then turned to the right side where the right round ligament was cauterized and cut with the LigaSure. The broad ligament was entered and the anterior leaf and posterior leaf each dissected down with ligature to meet the dissections on the opposite side. Uterine vasculature was cauterized and cut. Once the colpotomy was cleared of vasculature colpotomy was made starting posteriorly with Sonicision carried around anteriorly first on the left and then on the right, meeting in the middle. The uterus was freed, it was removed from the vagina intact with VCare manipulator and glove with sterile gauze was placed vaginally. Surgeon's gloves were again changed and attention was returned to the abdomen. Endo-stitch device was used to suture the vaginal cuff working from right to left in a running fashion. Small amount of bleeding was encountered at the left apex which was cauterized with monopolar spatula with resulting hemostasis. Tisseel was applied over the margins and attention was turned to the bladder for cystoscopy and Cummins catheter was removed. Cystoscope was introduced. The bladder was noted to be free of areas of injury and bilateral ureteral jets were visualized. Surgeon's gloves were again changed after Cummins was replaced. Attention was returned to the abdomen where excellent hemostasis was noted. Pneumoperitoneum was evacuated. All trocars were removed. Fascia was closed with 0-Vicryl in a running fashion and skin was closed with 4-0 Monocryl. All sponge and instrument counts were correct x2. The patient was taken to recovery in stable and satisfactory condition. Russ Mueller DO PATIENT NAME: ABDILIANNA OPERATIVE REPORT DATE OF : 76 REPORT #: [id number] PHYSICIAN: RUSS MUELLER DO PCP: JOSHUA MARROQUIN MD REPORT IS CONFIDENTIAL AND NOT TO BE RELEASED WITHOUT AUTHORIZATION [address] [place] [address] Draft [facility] /[id number] Copies: ~ PATIENT NAME: LIANNA PATTON OPERATIVE REPORT DATE OF : [birth year] REPORT #: [id number] PHYSICIAN: RUSS MUELLER DO PCP: JOSHUA MARROQUIN MD REPORT IS CONFIDENTIAL AND NOT TO BE RELEASED WITHOUT AUTHORIZATION
[~2021-07-29 07:00] MED LIST changes: +IBUPROFEN800 MG PO; +IMITREX100 MG PO; +LISINOPRIL-HCT1 EAC1 PO; +REMERON15 MG PO
--- NOTE | 2021-07-29 12:28 | NUR ---
07/29/21 1227 Christine Florian 1131 PT ARRIVED WITH ORAL AIRWAY IN PLACE, RESP EVEN AND UNLABORED. VSS. PT STARTS MOVING AND REACHING FOR HER FACE. RN REORIENTING PT TO PACU. 1133 ORAL AIRWAY REMOVED, PT EYES REMAIN CLOSED. PT STARTS CRYING AND REPORTS NAUSEA AND BEING COLD. PT FALLS BACK TO SLEEP, WARM BLANKETS GIVEN. 1135 PT REACHING AND PULLS OFF O2 MASK, O2 SAT DECREASED TO 93%. O2 MASK LPACED BACK ON PT, O2 INCREASED. PT VERY DROWSY. 1142 PT WAKES AND PULLS OFF MASK AND REPORT "I AM GOING TO THROW UP." EMESIS BAG GIVEN. HOB INCREASED. 1151 NAUSEA MEDICATION GIVEN AND COOL WASH CLOTH TO FOREHEAD. PT CRYING AND REPORTS PAIN 7/10 AND "I FEEL PANICKY." 1202 PAIN MEDICATION GIVEN. ANXIETY MEDICATION ORDER RECEIVED FROM LUCRETIA. 1207 PT ASLEEP AND SNORING NOTED. 1218 PT WAKES AND REPORTS FEELING PANICKY, THEN EASILY FALLS BACK TO SLEEP WITH SNORING NOTED. HOB DECREASED. 1223 PT WAKES OFF AND ON, AND CRIES AND GRABBING AT BLANKETS. ANXIETY MEDICATION GIVEN. 1224 PT ASLEEP AND O2 SAT 93%. PT SNORING.
--- NOTE | 2021-07-29 13:01 | NUR ---
PATIENT BACK TO ROOM FROM PACU. REPORT RECEIVED FROM ANNIE JIMÉNEZ. PATIENT VERY SLEEPY. SHE WILL WAKE UP TO ANSWER QUESTIONS THEN GOES BACK TO SLEEP. SNORING NOTED. VSS. STATES HER PAIN IS A 6/10. UMBILICAL DRESSING HAS A SMALL AMOUNT OF DRAINAGE. THE OTHER 2 INCISION SITES CLEAN, DRY, AND INTACT. PATIENT HAS ICE PACK ON LOWER ABDOMEN. NO VAGINAL BLEEDING. POSEY HAS CLEAR URINE OUTPUT. SON AT BEDSIDE. CALL LIGHT WITHIN REACH.
--- NOTE | 2021-07-29 13:59 | NUR ---
PATIENT IS RESTING IN BED. RATES HER PAIN 7/10. PATIENT STATES SHE IS FEELING A LITTLE "PANICKY". PAIN MEDICATION GIVEN PER MAR. VSS. PATIENTS UMILICAL DRESSING HAS MODERATE AMOUNT OF DRAINAGE, THE LOWER RIGHT INCISION IS CLEAN DRY AND INTACT, ANT THE LEFT DRESSING HAS A SMALL AMOUNT OF DRAINAGE. SHE DID EAT CRACKERS AND A SMALL AMOUNT OF APPLESAUCE. SHE IS DRINKING WATER. SON AT BEDSIDE. CALL LIGHT WITHIN REACH.
--- NOTE | 2021-07-29 14:06 | NUR ---
APPLIED A BIGGER BAND-AID OVER THE TOP OF THE ORIGINAL DRESSING ON HER UMBILICAL INCISION. THERE IS BLOOD SEEPING OUT BOTH SIDES OF BAND-AID.
--- NOTE | 2021-07-29 14:49 | NUR ---
PATIENT RESTING IN BED. PATIENT STATES PAIN IS 5/10. SHE REPORTS THE PAIN TO BE CRAMPY ACROSS HER LOWER ABDOMEN AND STABBING IN ONE AREA. SHE HAS NOT HAD ANY VAGINAL BLEEDING. HER UMBILICAL INCISION HAD MODERATE DRAINAGE AND WAS REINFORCED WITH A LARGER BAND-AID. HER RIGHT INCISION IS CLEAN, DRY, AND INTACT. THE LEFT INCISION HAS A SMALL AMOUNT OF DRAINAGE. VSS. PAIN MEDICATION AND IBUPROFEN GIVEN PER JAN. SON LEFT ROOM TO FILL HER PRESCRIPTIONS. CALL LIGHT WITHIN REACH.
--- NOTE | 2021-07-29 15:35 | NUR ---
PATIENT UP TO WALK AROUND WITH 2 RN ASSIST. PATIENT WAS A LITTLE DIZZY WHEN SITTING UP AND WHEN WALKING AROUND. PATIENTS GAIT WAS STEADY AND SHE TOLERATED WELL. D/C'D POSEY WITH 300ML OF URINE. PATIENT BACK TO BED. C/O HEADACHE. CALL LIGHT WITHIN REACH.
--- NOTE | 2021-07-29 16:03 | NUR ---
PATIENT RESTING IN BED. RATES HER PAIN A 5/10, DENIES NAUSEA. PATIENT STATES HER DIZZINESS WAS BETTER WHEN LAYING BACK DOWN. VSS. UMBILICAL DRESSING HAS MODERATE AMOUNT OF DRAINAGE. DRESSING ON LEFT INCISION HAS A SMALL AMOUNT OF DRAINAGE AND DRESSING ON RIGHT INCISION IS CLEAN, DRY, AND INTACT. PROVIDED PATIENT WITH PUDDING AND MORE CRACKERS. ENCOURAGED PATIENT TO DRINK MORE FLUIDS. CALL LIGHT WITHIN REACH.
--- NOTE | 2021-07-29 16:40 | NUR ---
PATIENT UP TO THE RESTROOM WITH 1 RN ASSIST. GAIT STEADY. PATIENT C/O NAUSEA. PATIENT VOIDED 100ML OF URINE.
--- NOTE | 2021-07-29 16:55 | NUR ---
PATIENT C/O NAUSEA. ZOFRAN GIVEN IV PER JAN.
--- NOTE | 2021-07-29 17:00 | NUR ---
PATIENT RESTING IN BED. VSS. RATES HER PAIN A 4-5/10. PATIENT STATES SHE HAS NAUSEA AND MEDICATION WAS GIVEN. ICE PACK ON HER LOWER ABDOMEN. UMBILICAL INCISION BAND-AIDS REMOVED AND REINFORCED WITH 4X4 AND TAPE. DRESSING ON LEFT INCISION IS HAS A SMALL AMOUNT OF DRAINAGE AND DRESSING ON RIGHT INCISION IS CLEAN, DRY, AND INTACT. SON AT BED SIDE. CALL LIGHT WITHIN REACH.
--- NOTE | 2021-07-29 17:18 | NUR ---
PHONE CALL TO DR. CRUZ. PATIENT STILL NAUSEATED AFTER 4MG OF ZOFRAN AND SCOPOLAMINE PATCH. PATIENTS PAIN IS 4-5/10. DR. CRUZ STATED SHE CAN GO HOME LONG SHE IS NOT VOMITING. VERBALIZED UNDERSTANDING.
--- NOTE | 2021-07-29 17:30 | NUR ---
PATIENT STATES SHE IS STILL HAVING NAUSEA. EXPLAINED TO PATIENT DR. CRUZ WANTS HER TO GO HOME AND REST MUCH POSSIBLE AND SHE THINKS IT HAS TO DO WITH ANESTHESIA. PATIENT VERBALIZED UNDERSTANDING. PROVIDED DISCHARGE INSTRUCTIONS TO PATIENT AND SON. BOTH VERBALIZED UNDERSTANDING AND ALL QUESTIONS ANSWERED. PAIN A 4-5/10. WHEELCHAIR RIDE PROVIDED TO [facility] WHERE HER SON WAS WAITING. ENCOURAGED HER TO CALL BUILDING ATTENDANT IF NOT BETTER.
--- NOTE | 2021-07-30 12:01 | PATH ---
[facility] [address] [place], [place] [address] Signed SPECIMEN(S): A UTERUS, CERVIX, BILATERAL TUBES SPECIMEN SOURCE: A. UTERUS, CERVIX, BILATERAL TUBES CLINICAL HISTORY: TLH, BS, cysto. Abnormal uterine bleeding, pelvic pain. FINAL PATHOLOGIC DIAGNOSIS: Uterus, cervix, and bilateral fallopian tubes, hysterectomy and bilateral salpingectomy: - Cervix: No histopathologic abnormality. - Endometrium: Proliferative endometrium. - Myometrium and serosa: No histopathologic abnormality. - Fallopian tubes: Paratubal cysts. - No evidence of malignancy. NAL:cml:C2NR MICROSCOPIC EXAMINATION: Histologic sections of all submitted blocks are examined by light microscopy. These findings, together with the gross examination, support the pathologic diagnosis. GROSS DESCRIPTION: The specimen, labeled "LIBIA, A.," is received in formalin and consists of a uterus (121 gram, 7.7 cm left to right, 7.5 cm superior to inferior, and 4.8 cm anterior to posterior), attached cervix (2.2 cm in length x 3.3 cm in diameter) with pink-reveles, smooth cervical mucosa and patent circular os (0.7 cm in diameter), and two detached and undesignated fimbriated fallopian tube segments (5.9 cm in length and ranging in diameter from 0.5-0.9 cm, and 7.0 cm in length and ranging in diameter from 0.7-0.8 cm). One fallopian tube segment is arbitrarily inked blue. Both fallopian tube segments are red-brown with attached paratubal cyst (0.5 and 0.6 cm in greatest dimension) and are sectioned to reveal a grossly unremarkable cut surface. The fimbriae are entirely submitted. The uterine serosa is pink-reveles and smooth. The anterior aspect of the uterus and cervix are inked blue. The specimen is opened to reveal a pink-reveles to hemorrhagic endocervix (endocervical canal: 2.5 x 0.8 cm), and endometrial cavity (5.4 cm superior to inferior x 3.5 cm cornu PATIENT NAME: LIANNA PATTON PATHOLOGY DATE OF : 76 REPORT #: [id number] PHYSICIAN: SANTOS MUNIZ PCP: JOSHUA MARROQUIN MD REPORT IS CONFIDENTIAL AND NOT TO BE RELEASED WITHOUT AUTHORIZATION [facility] [address], [place] [address] Signed to cornu) with hemorrhagic endometrial lining that measures up to 0.3 cm in thickness. The myometrium is pink-reveles and trabeculated with no masses. [employer] Engra[employer] Hand sections are submitted as follows: (A1-A2) Fallopian tubes (A3) Cervix (A4) Endomyometrium AC (under the direct supervision of a pathologist) The Gross Description was prepared using a voice recognition system. The report was reviewed for accuracy; however, sound-alike word errors, addition and/or deletions may occur. If there is any question about this report, please contact Client Services. PERFORMING LABORATORY: The technical component was performed by [facility] [address] (Loin Puller: Yoko Arciniega MD; CLIA# [id number]). Professional interpretation was performed by [facility], [address] [address] (CLIA# [id number]). Diagnostician: Becca Wolfe MD Pathologist Electronically Signed 07/30/2021 Copies: ~ PATIENT NAME: LIANNA PATTON PATHOLOGY DATE OF : 76 REPORT #: [id number] PHYSICIAN: SANTOS MUNIZ PCP: JOSHUA MARROQUIN MD REPORT IS CONFIDENTIAL AND NOT TO BE RELEASED WITHOUT AUTHORIZATION
== END 2021-07-29 17:35 | disposition home or self-care (01) ==
LOC: OPS 07:00 → DS 07:00 → OPS 09:00 → DS 09:00 → OPS 17:35
PROVIDERS: ATTEND Obstetrics & Gynecology
PROC: 0UT94ZZ Resection of Uterus, Percutaneous Endoscopic Approach (ICD-10-PCS; principal; 2021-07-29 09:00)
PROC: 0UT74ZZ Resection of Bilateral Fallopian Tubes, Percutaneous Endoscopic Approach (ICD-10-PCS; 2021-07-29 09:00)
DX: N93.9 Abnormal uterine and vaginal bleeding, unspecified (principal); N83.8 Other noninflammatory disorders of ovary, fallopian tube and broad ligament; I10 Essential (primary) hypertension; G43.919 Migraine, unspecified, intractable, without status migrainosus; Z88.8 Allergy status to other drugs, medicaments and biological substances; Z91.040 Latex allergy status
CPT/HCPCS: 00840; 85027; J0690; J1100; J1200; J1644; J1790; J1885; J2001; J2250; J2370; J2405; J2704; J3010; J7121

== ENCOUNTER 2022-12-26 16:44 | Emergency (ER) | payer OTHER ==
[~2022-12-26] VITALS: Ht 172.7 cm; Wt 91.9 kg
[~2022-12-26 16:44] MED LIST changes: +BAYER CHEWABLE81 MG PO
--- OUTSIDE RECORDS SUMMARY | 2022-12-26 16:48 | XMS ---
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 ELeonor VISIT COUNT (12 MO.) 1 CHANDU Cowan TOTAL 1 NOTE: Visits indicate total known visits. ED/UCC VISIT TRACKING (12 MO.) 12/26/2022 16:46 CHANDU Pack OR TYPE: Emergency COMPLAINT: - BLURR AND SPARKLE OF LIGHT INPATIENT VISIT TRACKING (12 MO.) No inpatient visits to display in this time frame [email or web address]
[2022-12-26] MEDS ORDERED: TRAZODONE HCL50 MG PO (16:58)
== END 2022-12-26 20:29 | disposition home or self-care (01) ==
LOC: ED 16:44
DX: H43.392 Other vitreous opacities, left eye (principal); Z88.6 Allergy status to analgesic agent; Z91.040 Latex allergy status; Z91.030 Bee allergy status; Z79.899 Other long term (current) drug therapy
CPT/HCPCS: 36415; 70450; 70496; 70498; 80048; 85025; 99284-25; A9270; Q9967

== ENCOUNTER 2025-05-15 12:25 | Emergency (ER) | payer OTHER ==
[~2025-05-15] VITALS: Ht 172.7 cm; Wt 104.7 kg
--- NOTE | ~2025-05-15 | EKG ---
[facility] [address] [facility] [place], [place] [address] Draft EK completed, results pending confirmation PATIENT NAME: LIANNA PATTON Electrocardiogram DATE OF : 76 PHYSICIAN: PRELIMINARY REPORT #: [id number] REPORT IS CONFIDENTIAL AND NOT TO BE RELEASED WITHOUT AUTHORIZATION
[2025-05-15] MEDS ORDERED: DEXTROAMP-AMPHE20 MG PO (12:35)
[2025-05-15] MEDS ORDERED: AMPHETAMINE SA7.5 MG PO (12:35)
[2025-05-15] MEDS ORDERED: AMITRIPTYLINE H25 MG PO (12:36)
[2025-05-15] MEDS ORDERED: LOSARTAN POTASS50 MG PO (12:36)
[2025-05-15] MEDS ORDERED: SUMATRIPTAN SU100 MG PO (12:36)
[2025-05-15] MEDS ORDERED: PROPRANOLOL HCL10 MG PO (12:36)
[2025-05-15 12:37] LABS: BASOPHILS 0.6 % (0.1-1.2); EOSINOPHILS 3.5 % (0.7-5.8); HEMATOCRIT 37.6 % (34.1-44.9); HEMOGLOBIN 12.7 g/dL (11.2-15.7); LYMPHOCYTES 26.5 % (19.3-51.7); MCH 28.7 PG (25.6-32.2); MCHC 33.8 g/dL (32.2-35.5); MCV 84.9 fL (79.4-94.8); MONOCYTES 7.6 % (4.7-12.5); NEUTROPHILS 61.7 % (34.0-71.1); PLATELET COUNT 294 K/uL (182-369); RBC 4.43 M/uL (3.93-5.22)
[2025-05-15 12:53] LABS: INR 1.09 (0.80-1.30); PROTIME 13.4 Sec (11.2-14.2)
[2025-05-15 12:56] LABS: ALBUMIN 3.5 g/dL (3.4-5.0); ALBUMIN/GLOBULIN RATIO 0.88 (1.1-2.4); ALKALINE PHOSPHATASE 88 U/L (46-116); ALT (SGPT) 38 U/L (14-59); ANION GAP 11.9 (7-21); AST (SGOT) 21 U/L (15-37); BILIRUBIN, TOTAL 0.6 mg/dL (0.2-1.0); BUN/CREATININE RATIO 12.82 (6.0-28.6); CALCIUM 8.6 mg/dL (8.5-10.1); CARBON DIOXIDE 28 mmol/L (21-32); CHLORIDE 103 mmol/L (98-107); CREATININE, SERUM 1.17 mg/dL (0.55-1.02); GLOMERULAR FILTRATION RATE,EST 58 mL/min (>60); MAGNESIUM 2.2 mg/dL (1.8-2.4); POTASSIUM 3.9 mmol/L (3.5-5.1); PROTEIN, TOTAL 7.5 g/dL (6.4-8.2); UREA NITROGEN 15 mg/dL (7-18)
[2025-05-15] MEDS ORDERED: SODIUM CHLORIDE 0.9% 1,000 ML IV PRN (14:00)
[2025-05-15] MEDS ORDERED: SUMAtriptan succinate 50 MG TAB PO ONE (14:15)
[2025-05-15 14:26] VITALS: BP 137/83
== END 2025-05-15 14:26 | disposition home or self-care (01) ==
LOC: ED 12:25
PROVIDERS: Emergency Medicine
DX: R07.89 Other chest pain (principal); R06.00 Dyspnea, unspecified; Z88.8 Allergy status to other drugs, medicaments and biological substances; Z91.040 Latex allergy status; Z91.030 Bee allergy status; Z79.899 Other long term (current) drug therapy
CPT/HCPCS: 36415; 71045; 80053; 83735; 84484; 85025; 85379; 85610; 93005; 93010; 99285-25; J7030

== ENCOUNTER 2025-08-22 13:23 | Emergency (ER) | payer OTHER ==
[~2025-08-22] VITALS: Ht 172.7 cm; Wt 95.0 kg
[~2025-08-22 13:23] MED LIST changes: +AMITRIPTYLINE H25 MG PO; +AMPHETAMINE SA7.5 MG PO; +DEXTROAMP-AMPHE20 MG PO; +LOSARTAN POTASS50 MG PO; +PROPRANOLOL HCL10 MG PO; +SUMATRIPTAN SU100 MG PO
[2025-08-22] MEDS ORDERED: CLONIDINE HCL0.1 M1 PO (13:42)
[2025-08-22] MEDS ORDERED: PROPRANOLOL HCL20 MG PO (13:44)
[2025-08-22] MEDS ORDERED: SODIUM CHLORIDE 0.9% 1,000 ML IV PRN (14:00)
[2025-08-22] MEDS ORDERED: KETOROLAC TROMETHAMINE 15 MG/ML VIAL IV ONE (14:00)
[2025-08-22 14:17] LABS: BASOPHILS 0.7 % (0.1-1.2); EOSINOPHILS 3.7 % (0.7-5.8); LYMPHOCYTES 28.3 % (19.3-51.7); MCH 28.3 PG (25.6-32.2); MCHC 33.3 g/dL (32.2-35.5); MCV 85.2 fL (79.4-94.8); MONOCYTES 7.7 % (4.7-12.5); NEUTROPHILS 59.4 % (34.0-71.1); RBC 4.80 M/uL (3.93-5.22)
[2025-08-22 14:33] LABS: ALT (SGPT) 25.0 U/L (14-59); AST (SGOT) 21.0 U/L (15-37); GLOMERULAR FILTRATION RATE,EST 86.0 mL/min (>60); PROTEIN, TOTAL 7.8 g/dL (6.4-8.2); UREA NITROGEN 14.0 mg/dL (7-18)
[2025-08-22 15:12] LABS: BLOOD/HGB, URINE NEGATIVE (Negative); KETONE, URINE NEGATIVE (Negative); LEUK ESTERASE, URINE NEGATIVE (negative); NITRITE, URINE NEGATIVE (negative)
[2025-08-22 16:29] VITALS: BP 132/70
== END 2025-08-22 16:34 | disposition home or self-care (01) ==
LOC: ED 13:23
PROVIDERS: Emergency Medicine
DX: N39.0 Urinary tract infection, site not specified (principal); Z88.8 Allergy status to other drugs, medicaments and biological substances; Z91.030 Bee allergy status; Z91.040 Latex allergy status
CPT/HCPCS: 36415; 74177; 80053; 81003; 85025; 96365; 96375; 99284-25; J0696; J1885; J2405; J7030